=== PATIENT | male | born 1950 | race Caucasian/White ===

== ENCOUNTER 2022-10-29 14:08 | Emergency (ER) | payer OTHER, SELFPAY ==
[2022-10-29 14:10] VITALS: BP 92/58; PULSE 72; RESP 16; TEMP 36; O2SAT 97; BMI 22.3
--- NOTE | 2022-10-29 14:30 | ED.RN ---
ONCE THIS NURSE FINISHED TRIAGING THE PT HE STATED HE IS GOING HOME. EXPLAINED WHY HE WAS HERE. PT STATES HE CALLED THE CAB TO TAKE HIM HOME AND HE IS FINE. HE STATES IF HE SITS TOO LONG HE GETS TIRED BECAUSE HE HAS LOW BP. STATES HE NEEDS TO GO HOME AND TAKE HIS AFTERNOON MEDS. ATTEMPTED TO CONVINCE PT TO LET THE DR LOOK AT HIS HEAD AND PT STATES IT IS FINE, HE DID IT EARLIER AND HE JUST NEEDS A SHOWER. EXPLAINED WE COULD MOST LIKELY LET THE DR SEE HIM AND GIVE HIM MEDS FOR HIS BP AND HE AGAIN REFUSED. EXPLAINED CONCERN BECAUSE HE WAS SLEEPY AND HAD BEEN DRINKING AND HE AGAIN STATES HE IS FINE AND HE IS GOING HOME. MULTIPLE ATTEMPTS TO CONVINCE PT TO STAY AND BE CHECKED OUT OR ATLEAST LET US CALL SOMEONE TO COME GET HIM. PT GOT UP OUT OF THE WC AND THEN AMBULATED FROM THE ER. THIS NURSE LET THE HRO KNOW SO HE COULD KEEP AN EYE OUT FOR HIM.
== END 2022-10-29 14:38 | disposition left against medical advice (07) ==
LOC: ED 14:35
DX: Z53.21 Procedure and treatment not carried out due to patient leaving prior to being seen by health care provider (principal)

== ENCOUNTER 2024-04-20 18:55 | Emergency (ER) | payer OTHER, SELFPAY ==
[2024-04-20 18:56] VITALS: PULSE 69; RESP 18; TEMP 36.8; O2SAT 94; BMI 19.4
--- NOTE | 2024-04-20 19:05 | EDS_ITS ---
HPI <ALVARO Leiva - Last Filed: 04/20/24 20:38> History of Present Illness Chief Complaint: Cold Sx Narrative Narrative: Patient is a 73-year-old male with history of anxiety, depression, enlarged prostate who presents to the emergency department for complaints of cough, congestion over the last week. Pay states has been feeling more short of breath on exertion. Patient states that he has had a lot of sick contact and is here for evaluation. Patient denies any specific fever or chills. Patient states he still smokes about a pack to a pack and a half every day. PFSH <ALVARO Leiva - Last Filed: 04/20/24 20:38> PFSH Home Medications ?Medication ?Instructions ?Recorded ?Last Taken ?Type buspirone 10 mg tablet 10 mg PO TID 07/27/16 Unknow n History escitalopram oxalate 10 mg tablet 10 mg PO DAILY 07/27 Unknown History oxycodone-acetaminophen 5 mg-325 1 tab PO Q4H PRN PRN Pain #12 tabs 07/27/16 Unknown Rx mg tablet sildenafil 100 mg tablet (Viagra) 100 mg PO PRN PRN SE X 07/27/16 Unknown History trazodone 100 mg tablet 100 mg PO QHS 07/27/16 Unkno wn History albuterol sulfate 90 mcg/actuation 2 puff inhalation Q 4H PRN PRN 04/20/24 Unknown Rx aerosol inhaler (Ventolin HFA) Wheezing #8.5 grams prednisone 50 mg tablet 50 mg PO DAILY #5 tabs 04/20 Unknown Rx Allergy/AdvReac Type Severity Reaction Status Date / Time No Known Allergies Allergy Verified 04/20/24 18:55 Social History Smoking Status: Current every day smoker tobacco type: cigarettes ROS <ALVARO Leiva - Last Filed: 04/20/24 20:38> ROS ED ROS Narrative Constitutional: Negative for fever, chills, weight loss, weakness Eyes: Negative for vision loss, vision change, double vision ENT: Negative for any sore throat, ear pain, congestion Cardiovascular: Negative for any chest pain, tightness, palpitations Respiratory: Negative for any sputum production, hemoptysis, dyspnea on exerti on, orthopnea. Positive for cough, dyspnea Gastrointestinal: Negative for any abdominal pain, nausea, vomiting, diarrhea, constipation, blood in stool, blood in vomit : Negative for any urinary frequency, dysuria, retention, blood in urine Muscle skeletal: Negative for any neck pain, back pain Neurological: Negative for any headache, syncope, dizziness Skin: Negative for any rashes, itching, abrasions, lacerations Psychiatric: Negative for any depression, anxiety, stress, suicidal ideation, homicidal ideation Hematologic: Negative for any excessive bruising, easy bleeding EXAM <ALVARO Leiva Last Filed: 04/20/24 20:38> Physical Exam Narrative Exam Narrative: Vital signs reviewed. HEET: Head normocephalic atraumatic, TMs clear bilaterally. Posterior pharynx is clear, moist mucous membranes. Nares clear bilaterally. Neck: Supple with no lymphadenopathy or tenderness. No signs of meningismus. Cardiac: Regular rate and rhythm no murmurs gallops or rubs, equal peripheral pulses bilaterally. Respiratory: Lungs clear to auscultation bilaterally, diminished to the lower lobes. No chest tenderness. Abdomen: Soft, nontender, nondistended. No abdominal bruit or pulsatile masses. No hepatosplenomegaly Extremities: No peripheral edema, no signs of gross trauma or deformity. Active full range of motion of all extremities. Neuro: Cranial nerves II through XII intact, no focal neurological deficits. Skin: Clean dry and intact with no rash, purpura, petechiae, vesicles or pustules. Backs/flank: No CVA tenderness, no midline spinal tenderness, no deformity. Psych: Normal mood and affect. No SI, HI or acute psychosis. Const Vital Signs: 04/20/24 18:56 04/20/24 18:57 04/20/24 19:20 Temperature 98.2 F Temperature Source Oral Pulse Rate 69 57 L Respiratory Rate 18 16 Respiratory Effort Normal Respiratory Pattern Normal Normal Pulse Ox 94 Oxygen Delivery Method Room Air <Dr. Gerardo Dozier DO - Last Filed: 04/20/24 20:45> Physical Exam Const Vital Signs: 04/20/24 18:56 04/20/24 18:57 04/20/24 19:20 Temperature 98.2 F Temperature Source Oral Pulse Rate 69 57 L Respiratory Rate 18 16 Respiratory Effort Normal Respiratory Pattern Normal Normal Pulse Ox 94 Oxygen Delivery Method Room Air MDM <ALVARO Leiva - Last Filed: 04/20/24 20:38> [facility] [place] Radiography Diagnostic Testing: Clinical Impression(s) from Imaging Studies Chest X-Ray 04/20/24 19:43 IMPRESSION: 1. No acute cardiopulmonary process. 2. Increased lucency in the lung bases bilaterally, possibly due to basilar predominant emphysematous disease versus an artifact of overexposure of the radiograph. Reading Location: [facility] Treatment and Re-Evaluation :: Differential diagnosis includes however is not limited to: COVID-19, influenza, RSV, community-acquired pneumonia, COPD exacerbation Patient appears generally well, vital signs are stable, patient is nontoxic- appearing. Presenting to the emergency department for plaints of cough, congestion. On my initial evaluation, I did wake the patient up because he was sleeping, vital signs were stable. Physical examination yields no red flag signs. Patient receive a two-view chest x-ray, COVID-19 influenza RSV swab, as well as breathing treatments. Patient will be reevaluated. All radiologic examinations were read, reviewed by the emergency department attending. From these reads, a plan of care will be put in place. Patient's chest x-ray showed no acute cardiopulmonary process. Patient's COVID- 19 influenza RSV was negative. Patient did feel better after the breathing t reatments. At this time, patient be placed on steroids, albuterol inhaler. Instructed to return for any worsening symptoms. At this time there is no evidence of a bacterial infection, bacterial pneumonia. Patient was able to ambulate around the department with a pulse ox that was normal. Patient was given strict return precaution, stable for discharge. <Dr. Gerardo Dozier, DO - Last Filed: 04/20/24 20:45> [facility] Narrative Medical decision making narrative: I have personally performed a face to face assessment of the patient and have reviewed the NERY Note. I performed a substantive portion of the visit including all aspects of the following. My mahajan findings include: History is [patient presents to the emergency department with complaint of a cough x 1 week. He has a friend that is also been ill with pneumonia recently. He has had some chills especially early on in the illness but no fever. He is a smoker and does not know if he has COPD. Normally does not wear O2. Cough mostly nonproductive. He denies chest pain.] Exam is [HEENT-PERRLA, EOMI. Cranial nerves II through XII grossly intact. TMs clear. Mucous membranes moist. No adenopathy. Cardiovascular-regular rate and rhythm without murmur or ectopy Lungs-few rales in the left base. Occasional faint expiratory wheezes. No conversational dyspnea. No significant tachypnea. Abdomen-normoactive bowel sounds, soft, nontender, no rebound or rigidity, no peritoneal signs. Extremities-intact ?4, normal range of motion, normal pulses, atraumatic] Medical Decison Making [ ] Other additions or changes: [None] Radiography Diagnostic Testing: Clinical Impression(s) from Imaging Studies Chest X-Ray 04/20/24 19:43 IMPRESSION: 1. No acute cardiopulmonary process. 2. Increased lucency in the lung bases bilaterally, possibly due to basilar predominant emphysematous disease versus an artifact of overexposure of the radiograph. [facility] Discharge Plan Triage Chief Complaint: Cold Sx ED Midlevel Provider: Gilberto Danielson ED Provider: Gerardo Dozier Dx/Rx/DC Orders Clinical Impression: URI (upper respiratory infection) Instructions: ED URI, Viral, No Abx (Adult) Prescriptions: New albuterol sulfate [Ventolin HFA] 90 mcg/actuation HFA aerosol inhaler 2 puff inhalation Q4H PRN PRN (Reason: Wheezing) Qty: 8.5 0RF prednisone 50 mg tablet 50 mg PO DAILY Qty: 5 0RF No Action sildenafil [Viagra] 100 MG tablet 100 mg PO PRN PRN (Reason: SEX) trazodone 100 MG tablet 100 mg PO QHS buspirone 10 MG tablet 10 mg PO TID escitalopram oxalate 10 MG tablet 10 mg PO DAILY oxycodone-acetaminophen 1 TABLET tablet 1 tab PO Q4H PRN PRN (Reason: Pain) Qty: 12 0RF [facility] [Primary [facility] Provider] - Activity Restrictions/Additional Instructions: You had a negative COVID-19 influenza RSV swab today. Your chest x-ray which showed chronic changes. Use the prednisone, butyryl inhaler as needed. Continue to try to quit smoking. Print Language: [place] Irish Disposition Disposition: Home, Self Care
[2024-04-20 19:20] VITALS: PULSE 57; RESP 16
[2024-04-20] MEDS: Ipratropium/Albuterol Sulfate 3 ML AMPUL.NEB INHALATION (19:20)
[2024-04-20] MEDS: Albuterol 2.5 MG/3 ML VIAL.NEB. 5 MG INHALATION (19:20)
--- NOTE | 2024-04-20 19:43 | RAD_ITS ---
PROCEDURE: CHEST PA AND LATERAL REASON FOR EXAM: Cough TECHNIQUE: Frontal and lateral views of the chest. COMPARISON: None. FINDINGS: Lucency is present in bilateral lung bases, possibly due to basilar predominant emphysematous disease. No pulmonary consolidation identified. No pleural effusion or pneumothorax. The cardiomediastinal silhouette is unremarkable. No acute osseous or soft tissue abnormality. RAD/Chest PA and Lateral IMPRESSION: 1. No acute cardiopulmonary process. 2. Increased lucency in the lung bases bilaterally, possibly due to basilar pre dominant emphysematous disease versus an artifact of overexposure of the radiograph. Reading [facility]
[2024-04-20 20:34] VITALS: O2SAT 100
[2024-04-20 20:56] VITALS: BP 120/76; PULSE 58; RESP 15; TEMP 36.6; O2SAT 100
== END 2024-04-20 20:56 | disposition home or self-care (01) ==
PROVIDERS: Emergency Provider Emergency Medicine; Visit Provider Emergency Medicine
DX: J06.9 Acute upper respiratory infection, unspecified (principal); F17.210 Nicotine dependence, cigarettes, uncomplicated
CPT/HCPCS: 71046; 87631; 94640; 99283

== ENCOUNTER 2024-08-10 06:17 | Inpatient (IN) | payer OTHER, SELFPAY ==
[2024-08-10] VITALS (19 sets, daily range): BP systolic 106–153; BP diastolic 60–96; PULSE 63–98; RESP 14–26; TEMP 36.3–37; O2SAT 89–100; BMI 18.9; BMI 18.8
--- NOTE | 2024-08-10 06:32 | EKG12_ITS ---
Test Reason : SOB Blood Pressure : */* mmHG Vent. Rate : 83 BPM Atrial Rate : 83 BPM P-R Int : 110 ms QRS Dur : 84 ms QT Int : 370 ms P-R-T Axes : 74 -29 65 degrees QTcB Int : 434 ms Poor data quality, interpretation may be adversely affected Sinus rhythm with short IN Otherwise normal ECG Confirmed by DEEP GONZALEZ, LEONIDAS ([id number]), map editor NEDA GILES ([id number]) on 08/12/2024 6:11:50 AM Referred By: TERRIE Confirmed By: LEONIDAS ADAME MD
[2024-08-10] MEDS: Ipratropium/Albuterol Sulfate 3 ML AMPUL.NEB INHALATION ×3 (06:39→20:15)
[2024-08-10] MEDS: Albuterol 2.5 MG/3 ML VIAL.NEB. INHALATION ×3 (06:41)
--- NOTE | 2024-08-10 06:45 | ED.VIS.DYS ---
HPI History of Present Illness Chief Complaint: Shortness of Breath Informant: patient and spouse/S.O. Narrative Narrative: 74-year-old male presenting with 2 to 3 days of shortness of breath, cough productive of some yellow sputum no blood, no chest pain no fevers or chills. He is 87-88% on room air in triage here on no home oxygen. Denies orthopnea, leg edema, known sick contacts. He does not have any known cardiac or pulmonary problems. [facility] Medical History Depression Home Medications ?Medication ?Instructions ?Recorded ?Last Taken ?Type buspirone 10 mg tablet 10 mg PO TID 07/27/16 Unknown History sildenafil 100 mg tablet (Viagra) 100 mg PO PRN PRN SEX 07/27/16 Unknown History albuterol sulfate 90 mcg/actuation 2 puff inhalation Q4H PRN PRN 04/20/24 Unknown Rx aerosol inhaler (Ventolin HFA) Wheezing #8.5 grams Allergy/AdvReac Type Severity Reaction Status Date / Time No Known Allergies Allergy Verified 08/10/24 06:18 Social History Smoking Status: Current every day smoker tobacco type: cigarettes ROS ROS ED Constitutional Constitutional ED: Denies chills or fever(s) Eyes Eyes: Denies change in vision or diplopia ENT ENT ED: Reports nasal congestion; Denies rhinorrhea or sore throat Cardiovascular Cardiovascular: Denies chest pain, orthopnea, palpitations or paroxysmal nocturnal dyspnea Respiratory/Chest Respiratory/Chest: Reports cough, dyspnea, dyspnea on exertion and sputum; Denies orthopnea or paroxysmal nocturnal dyspnea Gastrointestinal Gastrointestinal: Denies abdominal pain, diarrhea, nausea or vomiting Genitourinary Genitourinary ED: Denies dysuria or hematuria Musculoskeletal Musculoskeletal: Denies back pain or neck pain Integumentary Denies abscess or rash Neurologic Neurologic: Denies headache(s), paresthesias or weakness Psychiatric Psychiatric: Denies suicidal thoughts EXAM Physical Exam Const Vital Signs: 08/10/24 06:17 08/10/24 06:21 08/10/24 06:29 Temperature 98.6 F 98.6 F Temperature Source Oral Oral Pulse Rate 87 85 Respiratory Rate 22 H 22 H Respiratory Effort Short of Breath Labored Respiratory Pattern Blood Pressure 153/73 H 153/73 H Blood Pressure Mean 99 99 Pulse Ox 90 90 Oxygen Delivery Method Room Air Oxygen Flow Rate (L/min) 08/10/24 06:29 08/10/24 06:32 08/10/24 06:41 Temperature Temperature Source Pulse Rate 87 80 Respiratory Rate 22 H 18 Respiratory Effort Respiratory Pattern Normal Blood Pressure 123/79 H Blood Pressure Mean 93 Pulse Ox 90 96 Oxygen Delivery Method Nasal Cannula Nasal Cannula Oxygen Flow Rate (L/min) 2 3 08/10/24 06:42 08/10/24 06:42 Temperature Temperature Source Pulse Rate Respiratory Rate Respiratory Effort Respiratory Pattern Blood Pressure Blood Pressure Mean Pulse Ox 99 94 Oxygen Delivery Method Nasal Cannula Nasal Cannula Oxygen Flow Rate (L/min) 3 3 Positive well nourished and well developed Constitutional Narrative: thin General Appearance ED: well developed and NAD HEENT Reports moist mucous membranes normocephalic and atraumatic Eyes PERRL and EOMs intact bilaterally Neck full ROM, supple, no meningeal signs and no JVD Resp Resp Narrative: tachypneic but no respiratory distress. Diffusely diminished, symmetric. Expiratory wheezes bilaterally. Cardio regular rate, regular rhythm and no murmurs GI non-tender and non-distended Auscultation: normoactive bowel sounds Palpation: soft Back/Spine no CVA tenderness General Back: other FROM Extremity normal to inspection General Extremety ED: Negative for edema, pulses abnormal or tenderness General Extremity: Negative for edema or pulses abnormal Neuro oriented x3, CN's II-XII intact bilaterally and no sensory deficits noted Sensorium / Orientation: awake and alert Motor Exam: strength 5/5 throughout Psych mental status grossly normal Skin no rashes or lesions noted and no wounds MDM MDM MDM Narrative Medical decision making narrative: This patient has the body habitus and the demeanor of a COPD patient and he is a longtime smoker. I think he probably has a viral URI along with a exacerbation of COPD which he does not have an official diagnosis of, but that is how I am going to treat him, with chest x-ray, cardiac rule out workup, and steroids/nebulizer treatments. His CBC is back and he has a significant leukocytosis of 16.3, and with his hypoxemia and respiratory insufficiency, I expect he will need to be admitted. However he will need to be reevaluated and possibly ambulated if his hypoxemia resolves to see if he is better enough to be treated as an outpatient. I did give him Solu-Medrol 125 mg IV. This patient was seen and evaluated just prior to shift change, he has not yet received chest x-ray, that and the rest of his test results and reevaluation checked out to a.m. ED physician. Lab Data Attestation: I reviewed the patient's lab results. Labs: Laboratory Results - last 24 hr 08/10/24 06:35 WBC 16.3 H RBC 4.21 L Hgb 13.8 Hct 42.2 MCV 100.2 H MCH 32.8 H MCHC 32.7 RDW Std Deviation 47.4 H RDW Coeff of Mahad 12.8 Plt Count 492 H MPV 8.9 Immature Gran % (Auto) 0.600 Neut % (Auto) 83.8 H Lymph % (Auto) 5.8 L [place] % (Auto) 9.5 Eos % (Auto) 0.1 Baso % (Auto) 0.2 Absolute Neuts (auto) 13.7 H Absolute Lymphs (auto) 0.95 Nucleated RBC % 0 Rhythm Strip Rhythm Strip: Sinus Rhythm Rate: 85 Ectopy: None EKG Initial EKG: Attestation: I personally reviewed and interpreted this EKG as follows: Interpretation: Sinus Rhythm and No Acute Injury Pattern Comments: Leftward axis. Some peaked precordial T waves. Normal intervals and otherwise normal EKG. Prior EKG tracings: not available for review Prior: No Prior Discharge Plan Triage Chief Complaint: Shortness of Breath ED Provider: Seng Stevens Dx/Rx/DC Orders Clinical Impression: COPD with acute exacerbation, Hypoxemia Prescriptions: No Action sildenafil [Viagra] 100 MG tablet 100 mg PO PRN PRN (Reason: SEX) buspirone 10 MG tablet 10 mg PO TID albuterol sulfate [Ventolin HFA] 90 mcg/actuation HFA aerosol inhaler 2 puff inhalation Q4H PRN PRN (Reason: Wheezing) Qty: 8.5 0RF [facility] [facility] [[facility] Provider] - Print Language: Pashto
[2024-08-10] MEDS: MethylPREDNISolone 125 MG/2 ML Vial IV (06:47)
[2024-08-10 06:51] LABS: Absolute Lymphocyte Count 0.95 X10^3/uL (0.83-4.51); Absolute Neutrophil Count 13.7 X10^3/uL (2.0-7.7); Basophil# 0.03 X10^3/uL; Basophil% 0.2 % (0-1); Eosinophil# 0.02 X10^3/uL; Eosinophils% 0.1 % (0-5); Hematocrit 42.2 % (40-54); Hemoglobin 13.8 g/dL (13.0-16.5); Lymphocyte # 0.95 X10^3/ul (0.83-4.51); Lymphocyte % 5.8 % (19-41); Mean Corp Hgb Conc 32.7 g/dL (32-36); Mean Corpuscular Hgb 32.8 pg (27.0-32.0); Mean Corpuscular Volume 100.2 fL (80-94); Mean Platelet Vol. 8.9 fl (6.2-12.0); Monocyte# 1.56 X10^3/uL; Monocyte% 9.5 % (0-10); NRBC Flagged by Analyzer 0 % (0-5); Neutrophil # 13.68 X10^3/uL (2.7-7.7); Neutrophil % 83.8 % (47-70); POSITIVE DIFFERENTIAL YES; Platelet Count 492 K/mm3 (150-450); RBC Distribution Width CV 12.8 % (11.6-14.6); RBC Distribution Width SD 47.4 fl (35.1-43.9); Red Blood Count 4.21 M/mm3 (4.6-6.2); White Blood Count 16.3 K/mm3 (4.4-11.0)
[2024-08-10 06:52] LABS: Differential Indicated SCAN CRITERIA MET
--- NOTE | 2024-08-10 07:20 | RAD_ITS ---
PROCEDURE: CHEST PA AND LATERAL 08/10/2024 REASON FOR EXAM: COUGH/SOB TECHNIQUE: Frontal and lateral views of the chest. COMPARISON: 04/20/2024 FINDINGS: Hardware: None Heart: The heart size is normal. Mediastinum: The mediastinal contour is unremarkable. Lungs: Patchy opacities in the lung base, more prominent on the right, likely secondary to a combination of atelectasis and pneumonic infiltrates. No pneumothorax. No pleural effusion. Bones: Degenerative changes are identified within the thoracic spine. RAD/Chest PA and Lateral IMPRESSION: See above Reading Location: [facility]
[2024-08-10 07:27] LABS: Anion Gap 10 (5-15); BUN 12 mg/dL (4-19); BUN/Creat Ratio 14.5 RATIO (10-20); Calcium,Total 8.9 mg/dL (7.6-11.0); Carbon Dioxide 29.7 mmol/L (21.0-32.0); Chloride 95 mmol/L (98-108); Creatinine, Serum 0.81 mg/dL (0.70-1.20); EST Glomerular Filtration Rate 93 (>60); Estimated Creatinine Clearance 59.28 ml/min (50-250); Glucose 111 mg/dL (70-99); Lactic Acid 1.8 mmol/L (0.0-2.0); Potassium 4.2 mmol/L (3.3-5.1); Pro- Brain NATRIURETIC PEPTIDE 1153 pg/mL (<=900); Sodium Level 135 mmol/L (133-145); Troponin T High Sensitivity 14 ng/L (<=22)
[2024-08-10 08:06] LABS: Platelet Estimate SLT INC (ADEQ); Red Cell Morphology NORM C+C NORMAL (NORM C&C)
--- NOTE | 2024-08-10 08:41 | PCA ---
PT[facility] HAS [facility] CALLED THEM AT [id number] AND TOLD THEM WE WOULD BE ADMITTING THE PATIENT HERE OVERNIGHT FOR OBS. THEY REQUESTED I FAXED LABS, H&P AND ANYTHING I COULD SEND OVER TO THEM. DONE AND DONE!
[2024-08-10] MEDS: Ceftriaxone 2 GM in 0.9% Normal Saline (50mL MB+) 50 ML IV (08:52)
[2024-08-10] MEDS: Azithromycin 500 MG in 0.9% Normal Saline (250mL Bag) 250 ML 255 MG IV (09:43)
[2024-08-10 10:13] LABS: Troponin T High Sens 2 HR 12 ng/L (<=22)
[2024-08-10] MEDS: Enoxaparin 40 MG/0.4 ML Syringe SC (10:28)
[2024-08-10] MEDS: Ensure Plus High Protein 120 ML LIQUID PO (11:58)
--- NOTE | 2024-08-10 13:38 | HP.PCM.HOS_ITS ---
HPI - General General Date of Admission: 08/10/24 HPI Narrative RONALDO SRINIVASAN, is a 74 M who presents to the hospital with shortness of breath and signs consistent with pneumonia. He has been having 2 to 3 days of increasing shortness of breath as well as a productive cough. He presented to the ER today and was hypoxic to 87 to 88% on room air so he was placed on 4 L of oxygen to maintain his sats. Chest x-ray demonstrated a right lower lobe consolidation with a leukocytosis to 16.3 though he does remain afebrile. In the ER he was given a dose of Rocephin and azithromycin. COVID, influenza, RSV panel is negative. Will obtain a sputum culture. [facility] Medical History (Updated 08/10/24 @ 10:20 by Radhika Wilkes) Cancer Alcohol abuse Anxiety Smoker Depression Home Medications ?Medication ?Instructions ?Recorded ?Last Taken ?Type buspirone 10 mg tablet 10 mg PO TID 07/27/16 Unknow n History sildenafil 100 mg tablet (Viagra) 100 mg PO PRN PRN SE X 07/27/16 Unknown History albuterol sulfate 90 mcg/actuation 2 puff inhalation Q 4H PRN PRN 04/20/24 Unknown Rx aerosol inhaler (Ventolin HFA) Wheezing #8.5 grams Allergy/AdvReac Type Severity Reaction Status Date / Time No Known Allergies Allergy Verified 08/10/24 06:18 Family History (Updated 08/10/24 @ 14:[address] Geoff Pimentel MD) Other Cancer Heart disease Surgical History (Updated 08/10/24 @ 14:[address] Geoff Pimentel MD) Status post hernia repair Social History Smoking Status: Current every day smoker tobacco type: cigarettes ROS Constitutional Constitutional: Denies chills, fatigue, fever(s) or malaise Eyes Eyes: Denies blurry vision ENT HEENT: Denies headache(s) or nasal discharge Cardiovascular Cardiovascular: Denies chest pain, dyspnea on exertion or syncope Respiratory/Chest Respiratory/Chest: Reports productive cough, shortness of breath at rest and shortness of breath with exertion; Denies cough Gastrointestinal Gastrointestinal: Denies constipation, diarrhea, nausea or vomiting Genitourinary Genitourinary: Denies dysuria Neurologic Neurologic: Denies focal weakness, numbness or tremor(s) Psychiatric Psychiatric: Denies anxiety or depression Vital Signs Vital Signs Vital Signs: 08/10/24 06:17 08/10/24 06:21 08/10/24 06:29 Temperature 98.6 F 98.6 F Temperature Source Oral Oral Pulse Rate 87 85 Respiratory Rate 22 H 22 H Respiratory Effort Short of Breath Labored Respiratory Pattern Blood Pressure 153/73 H 153/73 H Blood Pressure Mean 99 99 Blood Pressure Source Blood Pressure Position Blood Pressure Location Pulse Ox 90 90 Oxygen Delivery Method Room Air Oxygen Flow Rate (L/min) Fraction of Inspired Oxygen (FIO2) 08/10/24 06:29 08/10/24 06:32 08/10/24 06:41 Temperature Temperature Source Pulse Rate 87 80 Respiratory Rate 22 H 18 Respiratory Effort Respiratory Pattern Normal Blood Pressure 123/79 H Blood Pressure Mean 93 Blood Pressure Source Blood Pressure Position Blood Pressure Location Pulse Ox 90 96 Oxygen Delivery Method Nasal Cannula Nasal Cannula Oxygen Flow Rate (L/min) 2 3 Fraction of Inspired Oxygen (FIO2) 08/10/24 06:42 08/10/24 06:42 08/10/24 07:21 Temperature 98.4 F Temperature Source Temporal Pulse Rate 92 Respiratory Rate 15 Respiratory Effort Respiratory Pattern Blood Pressure 123/69 H Blood Pressure Mean 87 Blood Pressure Source Blood Pressure Position Blood Pressure Location Pulse Ox 99 94 100 Oxygen Delivery Method Nasal Cannula Nasal Cannula Nasal Cannula Oxygen Flow Rate (L/min) 3 3 3 Fraction of Inspired Oxygen (FIO2) 08/10/24 09:00 08/10/24 09:44 08/10/24 10:12 Temperature 97.9 F 97.9 F 98.2 F Temperature Source Temporal Oral Pulse Rate 98 98 83 Respiratory Rate 19 H 19 H 18 Respiratory Effort Respiratory Pattern Blood Pressure 140/96 H 140/96 H 107/67 Blood Pressure Mean 110 110 80 Blood Pressure Source Blood Pressure Position Blood Pressure Location Pulse Ox 97 97 94 Oxygen Delivery Method Nasal Cannula Nasal Cannula Oxygen Flow Rate (L/min) 3 4 Fraction of Inspired Oxygen (FIO2) 08/10/24 10:35 08/10/24 10:35 Temperature 98.2 F Temperature Source Oral Pulse Rate 83 Respiratory Rate 18 Respiratory Effort Short of Breath Respiratory Pattern Blood Pressure 107/67 Blood Pressure Mean 80 Blood Pressure Source Monitor Blood Pressure Position Supine Blood Pressure Location Right Arm Pulse Ox 94 Oxygen Delivery Method Nasal Cannula Nasal Cannula Oxygen Flow Rate (L/min) 4 Fraction of Inspired Oxygen (FIO2) 4 Weight Weight: 113 lb 3.2 oz Body Mass Index (BMI) 18.8 Physical Exam Narrative General: Alert but drowsy, Oriented x3, Cooperative, No apparent distress, temporal wasting signs of protein calorie malnutrition HEENT: Atraumatic, PERRLA, EOMI, Normocephalic Oral: Moist Mucosa, edentulous how are you current Neck: Supple, No JVD Lungs: Diminished right greater than left, Normal air movement, No rhonchi, scattered wheeze, No rales Cardiovascular: Regular rate, Regular Rhythm, Normal S1, Normal S2, No murmurs Abdomen: Soft, Non Tender, Non-Distended, No Hepato-splenomegaly Extremities: No edema, Capillary Refill Less than 3 Seconds Skin: No rashes, No breakdown Musculoskeletal: No Tenderness to Palpation of Joints or Extremities Neurological: No focal neurological deficits, moves all extremities Psych/Mental Status: Normal Affect, Appropriate Results Lab / Micro Data 08/10/24 06:35 08/10/24 06:35 Labs: Laboratory Results - last 24 hr 08/10/24 06:35: WBC 16.3 H, RBC 4.21 L, Hgb 13.8, Hct 42.2, MCV 100.2 H, MCH 32.8 H, MCHC 32.7, RDW Std Deviation 47.4 H, RDW Coeff of Mahad 12.8, Plt Count 492 H, MPV 8.9, Immature Gran % (Auto) 0.600, Neut % (Auto) 83.8 H, Lymph % (Auto) 5.8 L, [place] % (Auto) 9.5, Eos % (Auto) 0.1, Baso % (Auto) 0.2, Absolute Neuts (auto) 13.7 H, Absolute Lymphs (auto) 0.95, Nucleated RBC % 0, Platelet Estimate SLT INC, RBC Morphology NORM C+C, Sodium 135, Potassium 4.2, Chloride 95 L, Carbon Dioxide 29.7, Anion Gap 10, BUN 12, Creatinine 0.81, Estim Creat Clear Calc 59.28, Est GFR (MDRD) Non-Af 93, BUN/Creatinine Ratio 14.5, Glucose 111 H, Lactic Acid 1.8, Calcium 8.9, Troponin T High Sens 14, NT pro BNP II 1153 H 08/10/24 09:30: Troponin T Hi Sens 2 Hr 12 Micro: Microbiology 08/10/24 06:43 Mucosa - Nose SARS-CoV-2, Influenza & RSV (PCR) - Final Rhythm Strip Rhythm Strip: Sinus Rhythm Rate: 85 Ectopy: None Imaging Radiology Impression Chest X-Ray 08/10/24 07:20 IMPRESSION: See above Reading [facility]: [facility] Assessment & Plan Assessment/Plan (1) Hypoxemia: PLAN: Plan 1. Acute hypoxic respiratory insufficiency secondary to right lower lobe pneumonia/tobacco abuse ? Continue with DuoNebs ? Continue with azithromycin and Rocephin ? Sputum cultures pending ? He was given dose of steroids, will continue with prednisone ? we have no medical records from him so he may have COPD ? He does appear very drowsy on my exam, he says that he has not slept however given the fact that this is a respiratory process we will obtain an ABG to evaluate his pCO2. ? Discussed with administration, can provide a nicotine patch if indicated 2. Chronic alcohol abuse ? Will continue with the CIWA protocol, if he does meet criteria for medications these can be added on 3. Anxiety/depression ? Stable ? Continue with BuSpar 4. Severe protein calorie malnutrition ? Will consult nutrition DVT: Lovemiyax 75 minutes was spent on direct patient care, including documentation as well as chart review and collaboration with colleagues Charges/Coding Visit Charges Inpatient E&M: 64555 Init Hosp L3
[2024-08-10 14:47] LABS: Allen Test Positive; Base Excess 12 mmol/L (-2 to +2); Blood Gas Specimen Type ART; Mode Not entered; O2 Delivery Device NRB; PO2 184 mmHG (75-100); SITE R Brach; SO2 100 % (95-99); Total Carbon Dioxide 39 mmol/L; pCO2 59.5 mmHg (35-45)
[2024-08-10 16:25] LABS: Base Excess 12 mmol/L (-2 to +2); Bicarbonate 36.7 mmol/L (22-26); Blood Gas Specimen Type ART; Mode BiLevel; O2 Delivery Device BiPAP; PO2 90 mmHG (75-100); RR 14; SITE R Brach; SO2 97 % (95-99); Total Carbon Dioxide 39 mmol/L; pCO2 55.7 mmHg (35-45); pH 7.43 (7.35-7.45)
[2024-08-10] MEDS: guaiFENesin 10 ML UDC (200MG/10ML) PO (20:27)
[2024-08-10] MEDS: Acetaminophen 325 MG Tablet 650 MG PO (20:27)
[2024-08-10] MEDS: busPIRone 5 MG Tablet 10 MG PO (20:27)
[2024-08-11] VITALS (15 sets, daily range): BP systolic 93–132; BP diastolic 49–82; PULSE 59–90; RESP 14–24; TEMP 36.4–36.8; O2SAT 90–98
[2024-08-11] MEDS: guaiFENesin 10 ML UDC (200MG/10ML) PO ×2 (05:20→21:04)
[2024-08-11] MEDS: busPIRone 5 MG Tablet 10 MG PO ×3 (05:21→21:04)
[2024-08-11] MEDS: Acetaminophen 325 MG Tablet 650 MG PO ×2 (05:21→21:04)
[2024-08-11 05:52] LABS: Absolute Lymphocyte Count 1.04 X10^3/uL (0.83-4.51); Absolute Neutrophil Count 15.1 X10^3/uL (2.0-7.7); Basophil# 0.04 X10^3/uL; Basophil% 0.2 % (0-1); Hematocrit 39.7 % (40-54); Hemoglobin 12.8 g/dL (13.0-16.5); Lymphocyte # 1.04 X10^3/ul (0.83-4.51); Mean Corp Hgb Conc 32.2 g/dL (32-36); Mean Corpuscular Hgb 32.6 pg (27.0-32.0); Mean Platelet Vol. 9.5 fl (6.2-12.0); Monocyte# 1.08 X10^3/uL; Monocyte% 6.2 % (0-10); NRBC Flagged by Analyzer 0 % (0-5); Neutrophil # 15.14 X10^3/uL (2.7-7.7); Neutrophil % 86.9 % (47-70); Platelet Count 533 K/mm3 (150-450); RBC Distribution Width CV 12.8 % (11.6-14.6); RBC Distribution Width SD 48.2 fl (35.1-43.9); Red Blood Count 3.93 M/mm3 (4.6-6.2); White Blood Count 17.4 K/mm3 (4.4-11.0)
[2024-08-11 06:09] LABS: Anion Gap 8 (5-15); BUN 19 mg/dL (4-19); BUN/Creat Ratio 26.7 RATIO (10-20); Calcium,Total 9.2 mg/dL (7.6-11.0); Carbon Dioxide 30.1 mmol/L (21.0-32.0); Chloride 103 mmol/L (98-108); EST Glomerular Filtration Rate 97 (>60); Estimated Creatinine Clearance 59.73 ml/min (50-250); Glucose 116 mg/dL (70-99); Potassium 4.7 mmol/L (3.3-5.1); Sodium Level 141 mmol/L (133-145)
--- NOTE | 2024-08-11 06:28 | PCM.PN.HOSP ---
Subjective Subjective Slight rise in his white count today secondary to infection as well as his steroids Objective Data Objective Data Vital Signs: Vital Signs Temp Pulse Resp BP Pulse Ox O2 Del Method O2 Flow Rate 98.3 F 65 20 H 106/67 98 Nasal Cannula 3 08/11/24 05:30 08/11/24 05:30 08/11/24 05:30 08/11/24 05:30 08/11/24 06:02 08/11/24 06:02 08/11/24 06:02 FiO2 30 08/11/24 02:35 Oxygen Flow Rate (L/min) 3 Oxygen Delivery Method Nasal Cannula Weight: 113 lb 3.2 oz Body Mass Index (BMI) 18.8 Intake & Output: Intake and Output for Last 24 Hours 08/10/24 08/11/24 08/12/24 03:59 03:59 03:59 Intake Total 1105 / 1105 Output Total 350 / 350 Balance 755 / 755 Lab / Micro Data 08/11/24 04:57 08/11/24 04:57 Labs: Laboratory Results - last 24 hr 08/10/24 06:35: WBC 16.3 H, RBC 4.21 L, Hgb 13.8, Hct 42.2, MCV 100.2 H, MCH 32.8 H, MCHC 32.7, RDW Std Deviation 47.4 H, RDW Coeff of Mahad 12.8, Plt Count 492 H, MPV 8.9, Immature Gran % (Auto) 0.600, Neut % (Auto) 83.8 H, Lymph % (Auto) 5.8 L, [place] % (Auto) 9.5, Eos % (Auto) 0.1, Baso % (Auto) 0.2, Absolute Neuts (auto) 13.7 H, Absolute Lymphs (auto) 0.95, Nucleated RBC % 0, Platelet Estimate SLT INC, RBC Morphology NORM C+C, Sodium 135, Potassium 4.2, Chloride 95 L, Carbon Dioxide 29.7, Anion Gap 10, BUN 12, Creatinine 0.81, Estim Creat Clear Calc 59.28, Est GFR (MDRD) Non-Af 93, BUN/Creatinine Ratio 14.5, Glucose 111 H, Lactic Acid 1.8, Calcium 8.9, Troponin T High Sens 14, NT pro BNP II 1153 H 08/10/24 09:30: Troponin T Hi Sens 2 Hr 12 08/11/24 04:57: WBC 17.4 H, RBC 3.93 L, Hgb 12.8 L, Hct 39.7 L, MCV 101.0 H, MCH 32.6 H, MCHC 32.2, RDW Std Deviation 48.2 H, RDW Coeff of Mahad 12.8, Plt Count 533 H, MPV 9.5, Immature Gran % (Auto) 0.700, Neut % (Auto) 86.9 H, Lymph % (Auto) 6.0 L, [place] % (Auto) 6.2, Eos % (Auto) 0.0, Baso % (Auto) 0.2, Absolute Neuts (auto) 15.1 H, Absolute Lymphs (auto) 1.04, Nucleated RBC % 0, Sodium 141, Potassium 4.7, Chloride 103, Carbon Dioxide 30.1, Anion Gap 8, BUN 19, Creatinine 0.70, Estim Creat Clear Calc 59.73, Est GFR (MDRD) Non-Af 97, BUN/Creatinine Ratio 26.7 H, Glucose 116 H, Calcium 9.2 Micro: Microbiology 08/10/24 06:43 Mucosa - Nose SARS-CoV-2, Influenza & RSV (PCR) - Final ABG Data ABG results: ABG 08/10/24 08/10/24 14:43 16:19 Specimen Type ART ART Sample Site R Brach R Brach pH 7.40 7.43 Bicarbonate Actual 37.0 H 36.7 H Total CO2 39 39 Base Excess 12 H 12 H O2 Saturation 100 H 97 O2 % 15.0 35.0 ABG pCO2 59.5 H 55.7 H ABG pO2 184 H 90 Felix Test Positive Respiration Rate 14 O2 Delivery Device NRB BiPAP Vent Mode Not entered BiLevel Clinical Comments 02/08 Radiography Diagnostic Testing: Radiology Impression Chest X-Ray 08/10/24 07:20 IMPRESSION: See above Reading [facility] Rhythm Strip Rhythm Strip: Sinus Rhythm Rate: 85 Ectopy: None Physical Exam Narrative General: Alert, Oriented x3, Cooperative, No apparent distress, temporal wasting signs of protein calorie malnutrition HEENT: Atraumatic, PERRLA, EOMI, Normocephalic Oral: Moist Mucosa, edentulous how are you current Neck: Supple, No JVD Lungs: Diminished right greater than left, Normal air movement, No rhonchi, scattered wheeze, No rales Cardiovascular: Regular rate, Regular Rhythm, Normal S1, Normal S2, No murmurs Abdomen: Soft, Non Tender, Non-Distended, No Hepato-splenomegaly Extremities: No edema, Capillary Refill Less than 3 Seconds Skin: No rashes, No breakdown Musculoskeletal: No Tenderness to Palpation of Joints or Extremities Neurological: No focal neurological deficits, moves all extremities Psych/Mental Status: Normal Affect, Appropriate Assessment & Plan Assessment/Plan (1) Hypoxemia: PLAN: Plan 1. Acute hypoxic respiratory insufficiency secondary to right lower lobe pneumonia/tobacco abuse ? Continue with DuoNebs ? Continue with azithromycin and Rocephin ? Sputum cultures pending ? He was given dose of IV steroids in the ER, will continue with prednisone ? we have no medical records from him so he may have COPD ? Discussed with administration, can provide a nicotine patch if indicated ? ABG yesterday demonstrated slight elevation in his pCO2, and he was trialed on BiPAP, currently on 3 L nasal cannula. He does feel that the BiPAP helped 2. Chronic alcohol abuse ? Will continue with the CIWA protocol, if he does meet criteria for medications these can be added on ? This morning CIWA score was 2 3. Anxiety/depression ? Stable ? Continue with BuSpar 4. Severe protein calorie malnutrition ? Will consult nutrition DVT: Monica Charges/Coding Visit Charges Inpatient E&M: 93280 Subs Hosp L2
[2024-08-11] MEDS: Ipratropium/Albuterol Sulfate 3 ML AMPUL.NEB INHALATION ×4 (07:03→20:00)
[2024-08-11] MEDS: predniSONE 20 MG Tablet 40 MG PO (07:42)
[2024-08-11] MEDS: Enoxaparin 40 MG/0.4 ML Syringe SC (07:43)
[2024-08-11] MEDS: Ensure Plus High Protein 120 ML LIQUID PO ×3 (07:43→16:54)
[2024-08-11] MEDS: Azithromycin 500 MG in 0.9% Normal Saline (250mL Bag) 250 ML 255 MG IV (09:13)
[2024-08-11] MEDS: 0.9% Saline Lock 10 ML Syringe IV (09:14)
[2024-08-11] MEDS: Ceftriaxone 1 GM/50 ML BAG IV (10:51)
[2024-08-11 11:49] LABS: Vitamin B12 642 pg/mL (180-914)
[2024-08-12] VITALS (12 sets, daily range): BP systolic 103–140; BP diastolic 61–78; PULSE 59–84; RESP 14–23; TEMP 36.4–37.1; O2SAT 92–99
[2024-08-12] MEDS: busPIRone 5 MG Tablet 10 MG PO ×3 (05:53→20:52)
[2024-08-12] MEDS: Acetaminophen 325 MG Tablet 650 MG PO (05:53)
[2024-08-12] MEDS: guaiFENesin 10 ML UDC (200MG/10ML) PO (05:53)
[2024-08-12 06:07] LABS: Absolute Lymphocyte Count 2.54 X10^3/uL (0.83-4.51); Absolute Neutrophil Count 10.8 X10^3/uL (2.0-7.7); Basophil# 0.07 X10^3/uL; Basophil% 0.5 % (0-1); Eosinophil# 0.03 X10^3/uL; Eosinophils% 0.2 % (0-5); Hematocrit 37.9 % (40-54); Hemoglobin 12.2 g/dL (13.0-16.5); Lymphocyte # 2.54 X10^3/ul (0.83-4.51); Mean Corp Hgb Conc 32.2 g/dL (32-36); Mean Corpuscular Volume 99.5 fL (80-94); Mean Platelet Vol. 9.2 fl (6.2-12.0); Monocyte# 1.18 X10^3/uL; Monocyte% 7.9 % (0-10); NRBC Flagged by Analyzer 0 % (0-5); Neutrophil # 10.81 X10^3/uL (2.7-7.7); Neutrophil % 72.3 % (47-70); POSITIVE MORPHOLOGY YES; Platelet Count 538 K/mm3 (150-450); RBC Distribution Width CV 12.8 % (11.6-14.6); RBC Distribution Width SD 46.5 fl (35.1-43.9); Red Blood Count 3.81 M/mm3 (4.6-6.2); White Blood Count 14.9 K/mm3 (4.4-11.0)
[2024-08-12 06:20] LABS: Differential Indicated SCAN CRITERIA MET
[2024-08-12 06:40] LABS: Anion Gap 8 (5-15); BUN 20 mg/dL (4-19); BUN/Creat Ratio 26.1 RATIO (10-20); Carbon Dioxide 29.6 mmol/L (21.0-32.0); Chloride 102 mmol/L (98-108); Creatinine, Serum 0.78 mg/dL (0.70-1.20); EST Glomerular Filtration Rate 94 (>60); Estimated Creatinine Clearance 59.73 ml/min (50-250); Glucose 86 mg/dL (70-99); Potassium 4.8 mmol/L (3.3-5.1); Sodium Level 140 mmol/L (133-145)
[2024-08-12] MEDS: Ipratropium/Albuterol Sulfate 3 ML AMPUL.NEB INHALATION ×4 (06:57→20:25)
[2024-08-12 07:09] LABS: Atypical Lymphocyte RARE %
[2024-08-12] MEDS: Ensure Plus High Protein 120 ML LIQUID PO ×3 (08:18→17:02)
[2024-08-12] MEDS: Enoxaparin 40 MG/0.4 ML Syringe SC (08:18)
[2024-08-12] MEDS: predniSONE 20 MG Tablet 40 MG PO (08:18)
[2024-08-12] MEDS: Ceftriaxone 1 GM/50 ML BAG IV (09:38)
[2024-08-12] MEDS: 0.9% Saline Lock 10 ML Syringe IV (09:38)
[2024-08-12] MEDS: Azithromycin 500 MG in 0.9% Normal Saline (250mL Bag) 250 ML 255 MG IV (10:37)
--- NOTE | 2024-08-12 15:50 | CASEMGMT ---
Addendum entered by Brenda Irvin 08/12/24 16:04: Dtr is David Mark [address] [facility] [place] [address] . SW added to contacts per pt request. No information is to be provided to Annette per pt. GIORGIO Doty Original Note: Social Work- SW met with pt to complete SDOH. Pt reports that he has lived in apartment 1.5-2 years. Pt was late with rent last month and owes this month rent for a total of $920. Pt receives $2058/month from social security and $1000/month from [place] disability. Pt reports no issues with utilities or food. Pt reports no safety concerns. Pt reports that uses the [place] for transportation. Pt has a psychiatrist through [place] for anxiety and depression diagnosis. Pt reports that she feels mood is stable and there are no concerns at this time regarding mental health. Pt reports that he has not been to [place]; his dad several years ago. Pt reports neighbors are nosy and pt does not want neighbor as a contact. Pt provided his daughter's name and contact. SW added to face sheet. Pt does not receive any community services. Pt reports no other needs that rent assistance. SW provided resources on [employer] and [employer]. SW also provided [employer] card and food resources for any future needs. SW remains available to follow. GIORGIO Doty
--- NOTE | 2024-08-12 16:24 | PN_ITS ---
Subjective Subjective Patient seen and examined. He had no active complaints. He was on 2 L of oxygen. He denied any fever or chills, he is still coughing but is not bringing up much sputum. His nurse was by his bedside at time of my review said she tried walking him today but he required increasing amounts of oxygen due to hypoxia. Review of systems otherwise negative. Objective Data Objective Data Vital Signs: Vital Signs Temp Pulse Resp BP Pulse Ox O2 Del Method O2 Flow Rate 98.1 F 69 18 106/61 97 Nasal Cannula 2 08/12/24 15:22 08/12/24 15:22 08/12/24 15:22 08/12/24 15:22 08/12/24 15:22 08/12/24 15:22 08/12/24 15:22 FiO2 30 08/12/24 02:18 Oxygen Flow Rate (L/min) 2 Oxygen Delivery Method Nasal Cannula Weight: 113 lb 3.2 oz Body Mass Index (BMI) 18.8 Intake & Output: Intake and Output for Last 24 Hours 08/10/24 08/11/24 08/12/24 23:59 23:59 23:59 Intake Total 1105 / 1105 1155 / 1155 305 / 305 Output Total 350 / 350 600 / 600 1000 / 1000 Balance 755 / 755 555 / 555 -695 / -695 Lab / Micro Data 08/12/24 05:44 08/12/24 05:44 Labs: Laboratory Results - last 24 hr 08/12/24 05:44: WBC 14.9 H, RBC 3.81 L, Hgb 12.2 L, Hct 37.9 L, MCV 99.5 H, MCH 32.0, MCHC 32.2, RDW Std Deviation 46.5 H, RDW Coeff of Mahad 12.8, Plt Count 538 H, MPV 9.2, Immature Gran % (Auto) 2.100 H, Neut % (Auto) 72.3 H, Lymph % (Auto) 17.0 L, [place] % (Auto) 7.9, Eos % (Auto) 0.2, Baso % (Auto) 0.5, Absolute Neuts (auto) 10.8 H, Absolute Lymphs (auto) 2.54, Nucleated RBC % 0, Atypical Lymphocytes RARE, Sodium 140, Potassium 4.8, Chloride 102, Carbon Dioxide 29.6, Anion Gap 8, BUN 20 H, Creatinine 0.78, Estim Creat Clear Calc 59.73, Est GFR (MDRD) Non-Af 94, BUN/Creatinine Ratio 26.1 H, Glucose 86, Calcium 9.0 Micro: Microbiology 08/10/24 14:15 Sputum, Expectorated/Coughed Gram Stain - Final 08/10/24 06:43 Mucosa - Nose SARS-CoV-2, Influenza & RSV (PCR) - Final Rhythm Strip Rhythm Strip: Sinus Rhythm Rate: 85 Ectopy: None Physical Exam Const alert, oriented x3 and no apparent distress Constitutional Narrative: frail, thin. BMI is 18.8 HEENT normocephalic, head/scalp atraumatic, moist oral mucous membranes and oropharynx normal Eyes PERRL and EOMs intact bilaterally Neck supple and no JVD General: trachea midline Lymph Lymphatic: no lymphedema noted Resp Resp Narrative: Moderately diminished breath sounds bibasilarly. Bilateral wheezes and few crackles. On 2 L of oxygen. Cardio regular rate, regular rhythm, S1 normal heart sound, S2 normal heart sound and no murmurs GI normal to inspection, nondistended, normoactive bowel sounds, soft to palpation, non-tender and non-distended Extremity normal capillary refill, no clubbing, cyanosis or edema and no calf tenderness General Extremity: no tenderness to palpation of joints or extremities Skin General Skin Exam: no breakdown Neuro no focal motor deficits and no sensory deficits noted Motor Exam: general weakness Psych thought process normal and cooperative Appearance: appropriate Assessment & Plan Assessment/Plan (1) COPD with acute exacerbation: (2) Hypoxemia: PLAN: Plan Acute hypoxia in the setting of COPD exacerbation and right lower lobe pneumonia * On IV ceftriaxone and azithromycin. Sputum cultures pending. Breathing treatments bronchodilators. Titrate oxygen to maintain saturation above 90%. #History of chronic alcohol use disorder: On CIWA protocol with Ativan. Monitor CIWA score. I do not take meds for symptomatic relief. #Anxiety and depression: On BuSpar # Severe protein calorie malnutrition: BMI is 18.8. Nutrition consulted. DVT prophylaxis: Lovenox Charges/Coding Visit Charges Inpatient E&M: 61473 Subs Hosp L2
[2024-08-13] VITALS (9 sets, daily range): BP systolic 103–129; BP diastolic 57–82; PULSE 69–85; RESP 18–24; TEMP 36.4–36.8; O2SAT 85–99
[2024-08-13] MEDS: busPIRone 5 MG Tablet 10 MG PO ×3 (04:19→20:19)
[2024-08-13] MEDS: Ipratropium/Albuterol Sulfate 3 ML AMPUL.NEB INHALATION ×4 (07:50→20:58)
[2024-08-13] MEDS: predniSONE 20 MG Tablet 40 MG PO (08:00)
[2024-08-13 09:08] LABS: Hematocrit 43.2 % (40-54); Hemoglobin 13.6 g/dL (13.0-16.5); Mean Corp Hgb Conc 31.5 g/dL (32-36); Mean Corpuscular Hgb 32.1 pg (27.0-32.0); Mean Corpuscular Volume 101.9 fL (80-94); Mean Platelet Vol. 9.1 fl (6.2-12.0); POSITIVE COUNT YES; POSITIVE MORPHOLOGY YES; Platelet Count 605 K/mm3 (150-450); RBC Distribution Width CV 12.9 % (11.6-14.6); RBC Distribution Width SD 48.2 fl (35.1-43.9); Red Blood Count 4.24 M/mm3 (4.6-6.2); White Blood Count 11.8 K/mm3 (4.4-11.0)
[2024-08-13 09:45] LABS: Differential Indicated MANUAL DIFF
[2024-08-13] MEDS: Ceftriaxone 1 GM/50 ML BAG IV (09:46)
[2024-08-13] MEDS: Enoxaparin 40 MG/0.4 ML Syringe SC (09:47)
[2024-08-13 09:51] LABS: Lymphocyte 23 % (19-41); Metamyelocyte 1 % (0-1); Monocyte 9 % (0-10); Myelocyte 1 % (0-0); Neutrophil-Segmented 65 % (47-70); Promyelocyte 1 % (0-0); Total Cells Counted 100 (MANUAL DIFF)
[2024-08-13 09:52] LABS: Anion Gap 9 (5-15); BUN 20 mg/dL (4-19); BUN/Creat Ratio 28.4 RATIO (10-20); Calcium,Total 9.1 mg/dL (7.6-11.0); Carbon Dioxide 32.6 mmol/L (21.0-32.0); Chloride 97 mmol/L (98-108); EST Glomerular Filtration Rate 97 (>60); Estimated Creatinine Clearance 59.73 ml/min (50-250); Glucose 85 mg/dL (70-99); Platelet Estimate MKD DEC (ADEQ); Potassium 4.5 mmol/L (3.3-5.1); Sodium Level 138 mmol/L (133-145)
[2024-08-13 09:53] LABS: Red Cell Morphology N CHROM NORMAL (NORM C&C)
--- NOTE | 2024-08-13 10:11 | CASEMGMT ---
RN?CM?VP OF CUSTOMER EXPERIENCE STRATEGY?CM?to room to meet with patient for initial transition planning/care coordination?assessment.?RN?CM?introduced self and role at [facility].? Pt voices understanding and consents to?assessment?at this time.? Pt resting in bed in no distress at this time.? Pt is A/O at this time and answers all questions appropriately.?? Care providers, pharmacy, and demographics verified/updated at this time. Strata: 2 PCP: Renato POSADAS Specialists: None Preferred Pharmacy: [facility] [place] Insurance: [place], [facility] Prescription Benefit:?yes Living Will/HPOA:? has a HCPOA, stating his daughter, David Mark, is his agent. He states he has a copy of this @ home and asked if he could bring this in. Also recommended David has a copy of this as well. LNOK: Daughter, David. Pt also has a son but states, I don't want to have anything to do with him Living Arrangements: Lives alone in ground-level apt w/one step to enter. Indep w/ADL's and IADL's. Transportation:?Pt does not drive. Pt states the [facility] sends a van to pick him up for appts. His family or friends also assist w/transportation. Sister can take him home @ [place]. DME: ? Denies using any DME and denies needs.?He does not have a pulse ox @ home & states cannot afford one. Recommended he f/u @ [facility] and inquire if they can assist w/getting a pulse ox. No home O2. Discussed possible need of home O2 @ [place]. He states he is okay with getting through the [facility] or through [facility], but only if they cover it @ 100 %, stating he does not have any $ to pay for co-pay. Inquired if pt smokes. He says he does, but he is trying to quit. He was made aware [facility] will not supply O2 until he has stopped smoking for at least 6 months at a minimum. He voices understanding and agreeable to O2 being billed through [facility]. He is aware there may be a co-pay. Aria, MS3 RN BLAKE, made aware of above. HHC/SNF: No hx of either. No needs identified. Pt wishes to return home and states has no concerns with going home at time of discharge. ?CM?to follow for home oxygen needs and any further discharge planning/needs.? Pt voices no further concerns/needs at this time.? Advised pt to ask for?CM?if any further questions/concerns/needs arise.? Voices understanding. PLAN:??Home Follow for possible home O2. Anderson BSN?RN?CM
[2024-08-13] MEDS: Azithromycin 500 MG in 0.9% Normal Saline (250mL Bag) 250 ML 255 MG IV (10:33)
[2024-08-13 10:36] LABS: Scan Smear per Review Criteria MANUAL DIFF
[2024-08-13 12:10] LABS: Absolute Lymphocyte Count 2.71 X10^3/uL (0.83-4.51); Absolute Neutrophil Count 7.7 X10^3/uL (2.0-7.7)
--- NOTE | 2024-08-13 16:33 | PCM.PROGNOTE ---
Subjective Subjective Patient seen and examined with his nurse by his bedside. Patient felt his breathing had improved. He was still mildly tachypneic. Review of systems otherwise negative. He did have walking pulse ox which showed he required 6 L of oxygen so plans to discharge canceled. Objective Data Objective Data Vital Signs: Vital Signs Temp Pulse Resp BP Pulse Ox O2 Del Method O2 Flow Rate 97.6 F L 82 24 H 103/62 94 Nasal Cannula 2 08/13/24 07:43 08/13/24 14:32 08/13/24 14:32 08/13/24 07:43 08/13/24 07:50 08/13/24 07:50 08/13/24 07:50 FiO2 30 08/12/24 20:40 Oxygen Flow Rate (L/min) 2 Oxygen Delivery Method Nasal Cannula Weight: 113 lb 3.2 oz Body Mass Index (BMI) 18.8 Intake & Output: Intake and Output for Last 24 Hours 08/11/24 08/12/24 08/13/24 23:59 23:59 23:59 Intake Total 1155 / 1155 705 / 705 425 / 425 Output Total 600 / 600 1900 / 1900 Balance 555 / 555 -1195 / -1195 425 / 425 Lab / Micro Data 08/13/24 08:47 08/13/24 08:47 Labs: Laboratory Results - last 24 hr 08/13/24 08:47: WBC 11.8 H, RBC 4.24 L, Hgb 13.6, Hct 43.2, MCV 101.9 H, MCH 32.1 H, MCHC 31.5 L, RDW Std Deviation 48.2 H, RDW Coeff of Mahad 12.9, Plt Count 605 H, MPV 9.1, Immature Gran % (Auto) WHITE SUGAR PAN TANK OPERATOR, Neut % (Auto) WHITE SUGAR PAN TANK OPERATOR, Lymph % (Auto) WHITE SUGAR PAN TANK OPERATOR, [place] % (Auto) WHITE SUGAR PAN TANK OPERATOR, Eos % (Auto) WHITE SUGAR PAN TANK OPERATOR, Baso % (Auto) WHITE SUGAR PAN TANK OPERATOR, Absolute Neuts (auto) 7.7, Absolute Lymphs (auto) 2.71, Total Counted 100, Neutrophils % (Manual) 65, Lymphocytes % (Manual) 23, Monocytes % (Manual) 9, Metamyelocytes % 1, Myelocytes % 1 H, Promyelocytes % 1 H, Nucleated RBC % WHITE SUGAR PAN TANK OPERATOR, Diff Path Review May foll, Platelet Estimate MKD DEC, RBC Morphology N CHROM, Sodium 138, Potassium 4.5, Chloride 97 L, Carbon Dioxide 32.6 H, Anion Gap 9, BUN 20 H, Creatinine 0.70, Estim Creat Clear Calc 59.73, Est GFR (MDRD) Non-Af 97, BUN/Creatinine Ratio 28.4 H, Glucose 85, Calcium 9.1 Micro: Microbiology 08/10/24 14:15 Sputum, Expectorated/Coughed Gram Stain - Final 08/10/24 14:15 Sputum, Expectorated/Coughed Respiratory Culture - Final Mixed normal respiratory kwesi. No Streptococcus pneumoniae, beta-hemolytic Streptococcus or Staphylococcus aureus isolated. 08/10/24 06:43 Mucosa - Nose SARS-CoV-2, Influenza & RSV (PCR) - Final Rhythm Strip Rhythm Strip: Sinus Rhythm Rate: 85 Ectopy: None Physical Exam Const alert, oriented x3 and no apparent distress Constitutional Narrative: frail, thin. BMI is 18.8 HEENT normocephalic, head/scalp atraumatic, moist oral mucous membranes and oropharynx normal Eyes PERRL and EOMs intact bilaterally Neck supple and no JVD General: trachea midline Lymph Lymphatic: no lymphedema noted Resp Resp Narrative: Moderately diminished breath sounds bibasilarly. Bilateral wheezes and few crackles. On 2 L of oxygen. Tachypneic Cardio regular rate, regular rhythm, S1 normal heart sound, S2 normal heart sound and no murmurs GI normal to inspection, nondistended, normoactive bowel sounds, soft to palpation, non-tender and non-distended Extremity normal capillary refill, no clubbing, cyanosis or edema and no calf tenderness General Extremity: no tenderness to palpation of joints or extremities Skin General Skin Exam: no breakdown Neuro no focal motor deficits and no sensory deficits noted Motor Exam: general weakness Psych thought process normal and cooperative Appearance: appropriate Assessment & Plan Assessment/Plan (1) COPD with acute exacerbation: (2) Hypoxemia: PLAN: Plan Acute hypoxia in the setting of COPD exacerbation and right lower lobe pneumonia On IV ceftriaxone and azithromycin. Sputum cultures negative. Breathing treatments bronchodilators. Titrate oxygen to maintain saturation above 90%. Had walking pulse ox today and required 6 L of oxygen. #History of chronic alcohol use disorder:\ On CIWA protocol with Ativan. Monitor CIWA score. Adjunctive meds for symptomatic relief #Anxiety and depression: On BuSpar # Severe protein calorie malnutrition: BMI is 18.8. Nutrition consulted. DVT prophylaxis: Lovenox Disposition: Patient requiring 6 L of oxygen today. Anticipate he will be discharged in the next 1 to 2 days. He will likely need oxygen at home but does not currently wear any oxygen. I am hopeful that his oxygen requirements will come down a bit prior to discharge. Charges/Coding Visit Charges Inpatient E&M: 00678 Subs Hosp L2
[2024-08-14 03:29] VITALS: BP 117/70; PULSE 83; RESP 20; TEMP 36.7; O2SAT 98
[2024-08-14 03:55] VITALS: PULSE 77; RESP 20
[2024-08-14] MEDS: Ipratropium/Albuterol Sulfate 3 ML AMPUL.NEB INHALATION (03:55)
[2024-08-14] MEDS: busPIRone 5 MG Tablet 10 MG PO (04:48)
--- NOTE | 2024-08-14 05:57 | NURSING ---
pt got his clothes on and hooped into the elevator per security. Pt has no o2 on at this time. security notified. They saw him get on elevator. Instructed pt needs to come back so we can get the iv out
--- NOTE | 2024-08-14 06:15 | NURSING ---
Security came up and said pt is long gone.
--- NOTE | 2024-08-14 06:20 | PCM.HOSP.N ---
Hospitalist Note I was notified at 6:18 AM the patient's got dressed and got in the elevator and left the hospital until now when he was doing soup. Patient essentially eloped from the hospital.
--- NOTE | 2024-08-14 06:22 | NURSING ---
Dispatch notified pt has his iv in. They will dispense soneone there
--- NOTE | 2024-08-14 06:27 | NURSING ---
Attempted to call pt cell phone but he will not answer
--- NOTE | 2024-08-14 06:39 | NURSING ---
Security called and police said pt removed the iv himself. Pt is home
--- NOTE | 2024-08-16 08:35 | DS.PCM_ITS ---
Providers Date of Admission: 08/10/24 Date of Discharge: 08/14/24 Primary Care Physician: [facility] Reason For Visit: PNEUMONIA WITH HYPOXIA Diagnosis Discharge Diagnosis (1) COPD with acute exacerbation: Status: Chronic Code(s): J44.1 - Chronic obstructive pulmonary disease with (acute) exacerbation (2) Hypoxemia: Status: Acute Code(s): R09.02 - Hypoxemia Plan Acute hypoxia in the setting of COPD exacerbation and right lower lobe pneumonia * On IV ceftriaxone and azithromycin. * Sputum cultures negative. Breathing treatments bronchodilators. * Titrate oxygen to maintain saturation above 90%. * Had walking pulse ox today and required 6 L of oxygen. #History of chronic alcohol use disorder:\ * On CIWA protocol with Ativan. Monitor CIWA score. Adjunctive meds for symptomatic relief * #Anxiety and depression: On BuSpar # Severe protein calorie malnutrition: BMI is 18.8. Nutrition consulted. DVT prophylaxis: Lovenox Disposition: * Patient requiring 6 L of oxygen today. * Anticipate he will be discharged in the next 1 to 2 days. * He will likely need oxygen at home but does not currently wear any oxygen. * I am hopeful that his oxygen requirements will come down a bit prior to discharge. Medications at Discharge Home Medications buspirone 10 mg tablet 10 mg PO TID 07/27/16 sildenafil 100 mg tablet (Viagra) 100 mg PO PRN PRN SEX 07/27/16 albuterol sulfate 90 mcg/actuation aerosol inhaler (Ventolin HFA) 2 puff inhalation Q4H PRN PRN Wheezing #8.5 grams 04/20/24 amoxicillin 875 mg-potassium clavulanate 125 mg tablet 1 tab PO BID 3 days #6 tabs 08/16/24 prednisone 10 mg tablet See Taper PO DAILY 12 days #30 tabs 08/16/24 Hospital Course Procedures 2-D Echocardiogram Summary of Care Provided Minutes Spent on Discharge: 45 Hospital Course: Patient is a 74-year-old male with past medical history as outlined was admitted to the ED on 08/10/2024 with complaint of shortness of breath and a productive cough. He came to the ED and was hypoxic at 87% on room air so he required 4 L of oxygen. Chest x-ray showed a right lower lobe consolidation and WBC was 16.3. Was started on IV Rocephin and azithromycin. COVID, RSV and influenza screen were negative. He was admitted to the body for hypoxia due to community- acquired pneumonia. He also had a history of chronic alcohol use disorder so was placed on Ativan with CIWA protocol. He required up to 6 L of oxygen during. Plan was to discharge patient on 08/13/2024 but he was requiring 6 L of oxygen so plan was to discharge patient the following day if his oxygen requirements improved. Patient however ELOPED on 08/15/2023 after he dressed up, got in the elevator and just left the hospital. Patient was seen and examined on the day of his elopement on 08/14/2024 as he left before this hospitalist started her shift in the morning. Physical Exam Const alert, oriented x3 and no apparent distress Constitutional Narrative: frail, thin. BMI is 18.8 General Appearance: cooperative Orientation / Consciousness: awake Exam Limitations: no limitations HEENT normocephalic, head/scalp atraumatic, hearing grossly normal bilaterally, moist oral mucous membranes and oropharynx normal Eyes EOMs intact bilaterally Neck supple and no JVD General: trachea midline Lymph Lymphatic: no lymphedema noted Resp Resp Narrative: Moderately diminished breath sounds bibasilarly. Bilateral wheezes and few crackles. On 2 L of oxygen. Tachypneic Cardio regular rate, regular rhythm, S1 normal heart sound, S2 normal heart sound and no murmurs GI normal to inspection, nondistended, normoactive bowel sounds and soft to palpation Extremity normal capillary refill, no clubbing, cyanosis or edema and no calf tenderness General Extremity: no tenderness to palpation of joints or extremities Skin no rashes or lesions noted General Skin Exam: no breakdown Neuro no focal motor deficits and no sensory deficits noted Sensorium / Orientation: awake and alert Motor Exam: general weakness Psych thought process normal and cooperative Appearance: appropriate Weight / BMI Weight Weight: 113 lb 3.2 oz Body Mass Index (BMI) 18.8 ABG / Lab / Microbiology Data 08/13/24 08:47 08/13/24 08:47 Microbiology: Microbiology 08/10/24 14:15 Sputum, Expectorated/Coughed Gram Stain - Final 08/10/24 14:15 Sputum, Expectorated/Coughed Respiratory Culture - Final Mixed normal respiratory kwesi. No Streptococcus pneumoniae, beta-hemolytic Streptococcus or Staphylococcus aureus isolated. 08/10/24 06:43 Mucosa - Nose SARS-CoV-2, Influenza & RSV (PCR) - Final D/C Instructions DC O2, CPAP, BIPAP Needs Home O2 Discharge instructions: No DC home with Oxygen: No Meaningful Use Info Meaningful Use Meaningful Use Diagnoses (Choose all that apply): None applicable Ischemic Stroke Statin Dosing Therapy Reference: STATIN DOSE THERAPY REFERENCE: * Patients > 75 years receive moderate or high dose statin therapy. * Patients 75 years or YOUNGER should receive HIGH intensity statin dose unless contraindicated. You will be required to document reason for non-treatment if statin daily dose does not meet guidelines. HIGH DOSE STATIN THERAPY DAILY Atorvastatin > than or = to 40 mg Rosuvastatin > than or = to 20 mg Amlodipine + Atorvastatin > than or = to 2.5/40 mg Ezetimibe + Simvastatin 10/80 mg Simvastatin 80mg Discharge Plan Admission Admit Date/Time: 08/10/24 09:09 Primary Reason for Your Visit: hypoxia due to community acquired pneumonia Attending Provider: Keren Argueta Primary Care Provider: [facility] Consulting Providers: Geoff Pimentel Discharge Orders/Prescriptions Prescriptions: No Action sildenafil [Viagra] 100 MG tablet 100 mg PO PRN PRN (Reason: SEX) buspirone 10 MG tablet 10 mg PO TID albuterol sulfate [Ventolin HFA] 90 mcg/actuation HFA aerosol inhaler 2 puff inhalation Q4H PRN PRN (Reason: Wheezing) Qty: 8.5 0RF prednisone 10 mg tablet See Taper PO DAILY 12 Days Qty: 30 0RF Taper: Prednisone Taper 40 mg WITH BREAKFAST for 3 Days and 0 Hour 30 mg WITH BREAKFAST for 3 Days and 0 Hour 20 mg WITH BREAKFAST for 3 Days and 0 Hour 10 mg WITH BREAKFAST for 3 Days and 0 Hour amoxicillin-pot clavulanate 875-125 mg tablet 1 tab PO BID 3 Days Qty: 6 0RF Referrals / Follow Up: [facility] [Primary Care Provider] - Disposition Disposition (needs filled in before D/C Order can be placed): Against Medical Advice Charges/Coding Visit Charges Inpatient E&M: 12017 Disch Hosp >30min
[2024-08-21 11:30] LABS: Pathologist Review Reviewed
== END 2024-08-14 05:18 | disposition left against medical advice (07) | DRG 193 ==
LOC: ED 09:15 → MS3 09:27
PROVIDERS: Admitting Provider Family Medicine; Emergency Provider Emergency Medicine; Visit Provider Student in an Organized Health Care Education/Training Program
DX: J18.9 Pneumonia, unspecified organism (principal); E43 Unspecified severe protein-calorie malnutrition; J44.1 Chronic obstructive pulmonary disease with (acute) exacerbation; J44.0 Chronic obstructive pulmonary disease with (acute) lower respiratory infection; Z68.1 Body mass index [BMI] 19.9 or less, adult; F10.10 Alcohol abuse, uncomplicated; F32.A Depression, unspecified; F17.210 Nicotine dependence, cigarettes, uncomplicated; J06.9 Acute upper respiratory infection, unspecified; D72.829 Elevated white blood cell count, unspecified; F41.9 Anxiety disorder, unspecified; Z11.52 Encounter for screening for COVID-19; R09.02 Hypoxemia; R06.89 Other abnormalities of breathing; Z79.899 Other long term (current) drug therapy; Z79.891 Long term (current) use of opiate analgesic; Z79.51 Long term (current) use of inhaled steroids; R05.9 Cough, unspecified
CPT/HCPCS: 36415; 36600; 71046; 80048; 82607; 82746; 82803; 83605; 83880; 84484; 85025; 87070; 87205; 87631; 93005; 94002; 94003; 94640; 94668; 94762; 97802; 99285; A4216; J0696

== ENCOUNTER 2024-08-14 15:38 | Inpatient (IN) | payer OTHER, SELFPAY ==
[2024-08-14] VITALS (19 sets, daily range): BP systolic 101–158; BP diastolic 61–129; PULSE 76–98; RESP 14–32; TEMP 36.6–36.8; O2SAT 71–96; BMI 19.6; BMI 19.1
--- NOTE | 2024-08-14 16:33 | EKG12_ITS ---
Test Reason : SOB Blood Pressure : */* mmHG Vent. Rate : 82 BPM Atrial Rate : 82 BPM P-R Int : 136 ms QRS Dur : 78 ms QT Int : 356 ms P-R-T Axes : 86 -18 74 degrees QTcB Int : 415 ms Sinus rhythm with Premature supraventricular complexes Prominent T waves-anterior Abnormal ECG Confirmed by Erik Hollins ([id number]), assignment desk editor NEDA GILES ([id number]) on 08/15/2024 10:15:55 AM Referred By: Confirmed By: Erik Hollins
--- NOTE | 2024-08-14 16:35 | ED.VIS.DYS ---
HPI History of Present Illness Chief Complaint: Shortness of Breath Detail of Chief Complaint: Patient was admitted to the hospital on August 10. Patient eloped this ediyfnn Informant: patient Onset/Context/Timing Onset: Days Context: sudden Timing: Continuous Quality: Positive for Dyspnea on exertion and Wheezing; Negative for Orthopnea or PND Current Severity: Moderate Maximum Severity: Severe Worsened by: Exertion Relieved by: Nothing Associated Symptoms cough Chest Pain: Positive for None Narrative Narrative: Patient is a 74-year-old male. He was mated on August 10 for acute hypoxic respiratory insufficiency secondary to right lower lobe pneumonia. He also has history of chronic alcohol abuse, anxiety depression, severe protein caloric malnutrition. He was placed on Lovenox for DVT prophylaxis. Patient states he left this morning because he had appoint with so security. He presents now because he is short of breath. Patient is breathing much more rapidly than 20 times a minute. He is breathing with pierced lips. He is able to answer 1-3 words at a time. He is not hypoxic. Patient denies fever or chills. Patient believes he has bilateral pneumonia. After reviewing records he had right lower lobe pneumonia. He does have a history of COPD and tobacco abuse. He denies headache, visual, ocular auditory symptoms. He denies chest discomfort. Denies abdominal pain, nausea, vomiting or diarrhea. He denies dysuria, frequency, urgency or hematuria. He denies any skin lesions. PE Risk Factors: Negative for Cancer, OCP + Smoking + > 35, Prior DVT or PE, Recent immobilization, Recent surgery or Recent travel Prior similar symptoms: Yes Recent Illness/Hospitalization: Yes PFSH PFS Medical History Cancer Alcohol abuse Anxiety Smoker Depression Home Medications ?Medication ?Instructions ?Recorded ?Last Taken ?Type buspirone 10 mg tablet 10 mg PO TID 07/27/16 Unknown History sildenafil 100 mg tablet (Viagra) 100 mg PO PRN PRN SEX 07/27/16 Unknown History albuterol sulfate 90 mcg/actuation 2 puff inhalation Q4H PRN PRN 04/20/24 Unknown Rx aerosol inhaler (Ventolin HFA) Wheezing #8.5 grams Allergy/AdvReac Type Severity Reaction Status Date / Time No Known Allergies Allergy Verified 08/14/24 15:43 Family History Other Cancer Heart disease Surgical History Status post hernia repair Social History Smoking Status: Current every day smoker tobacco type: cigarettes ROS ROS ED Constitutional Constitutional ED: Denies chills, fever(s) or sweats Eyes Eyes: Denies blurry vision or change in vision ENT ENT ED: Denies ear pain, rhinorrhea or sore throat Cardiovascular Cardiovascular: Denies chest pain, orthopnea, palpitations or paroxysmal nocturnal dyspnea Respiratory/Chest Respiratory/Chest: Reports cough, dyspnea and dyspnea on exertion; Denies orthopnea or paroxysmal nocturnal dyspnea Gastrointestinal Gastrointestinal: Denies abdominal pain, diarrhea, nausea or vomiting Genitourinary Genitourinary ED: Denies dysuria, hematuria or urinary frequency Musculoskeletal Musculoskeletal: Denies arthralgias or myalgias Integumentary Denies rash Neurologic Neurologic: Denies headache(s) or paresthesias Psychiatric Psychiatric: Reports anxiety Hematologic/Lymphatic Hematologic/Lymphatic: Denies easy bleeding or easy bruising EXAM Physical Exam Const Vital Signs: 08/14/24 15:39 08/14/24 15:39 08/14/24 16:20 Temperature 97.9 F Temperature Source Oral Pulse Rate 95 76 Respiratory Rate 20 H 14 Respiratory Effort Normal Non-Labored Respiratory Depth Normal Respiratory Pattern Normal Blood Pressure 101/74 Blood Pressure Mean 83 Pulse Ox 94 93 Oxygen Delivery Method Room Air Room Air 08/14/24 16:30 08/14/24 16:45 08/14/24 16:45 Temperature Temperature Source Pulse Rate 88 90 76 Respiratory Rate 25 H 26 H 24 H Respiratory Effort Respiratory Depth Respiratory Pattern Tachypnea Blood Pressure 158/86 H Blood Pressure Mean 107 Pulse Ox 95 93 Oxygen Delivery Method 08/14/24 17:00 08/14/24 18:00 Temperature Temperature Source Pulse Rate 82 98 Respiratory Rate 30 H 32 H Respiratory Effort Respiratory Depth Respiratory Pattern Blood Pressure 145/129 H 107/61 Blood Pressure Mean 134 76 Pulse Ox 93 94 Oxygen Delivery Method Room Air Room Air Positive well developed Constitutional Narrative: Patient is thin with a BMI of 19. Patient is not distressed. There is use of accessory muscles and supraclavicular retractions. He is breathing with pierced lips. His responses are 1-3 words in length. General Appearance ED: well developed HEENT Reports dry mucous membranes HEENT Narrative: Head is atraumatic and normocephalic. Ears are normal. Nares are patent Mouth ED: Yes dry mucous membranes Mouth: dry mucous membranes Eyes PERRL and EOMs intact bilaterally General Eye ED: Negative for pale conjunctiva or scleral icterus Neck no lymphadenopathy, supple, no meningeal signs and no JVD Resp No normal respiratory effort and No clear to auscultation bilaterally Auscultation: wheezes expiratory wheezes and scattered wheezes (Bilateral worse lower lobes.) and diminished lung sounds bilateral and diffuse Cardio regular rate, regular rhythm, S1 normal heart sound, S2 normal heart sound and no murmurs Cardio Narrative: Monitor reveals a sinus rhythm with PACs. He also has very peaked T waves. Will obtain EKG. GI non-tender, non-distended and no masses Palpation: soft Back/Spine normal to inspection Extremity normal to inspection Extremity Narrative: There is no clubbing or cyanosis. General Extremety ED: Negative for edema or tenderness General Extremity: Negative for edema Neuro oriented x3 and CN's II-XII intact bilaterally Sensorium / Orientation: alert Psych mental status grossly normal Skin no wounds and skin turgor normal Lesions: no lesions Rashes: no rashes MDM MDM MDM Narrative Medical decision making narrative: Patient with respiratory distress due to noncompliance with medicine. Patient was treated with DuoNeb and albuterol as well as Solu-Medrol. Chest x-ray was obtained to determine if there is any worsening of his pneumonia and appropriate blood work was obtained to assess H&H, white count, renal function, anion gap. Because his respiratory distress and ABG was obtained to determine if he is retaining CO2. He is not hypoxic. ER record and hospitalist records for his present hospitalization were reviewed and documented HPI narrative History & Record Review Additional record(s) reviewed:: Prior inpatient record, Prior ED visit and Prior labs Lab Data Attestation: I reviewed the patient's lab results. Lab results narrative: Basic metabolic panel, liver enzymes are unremarkable. AST and ALT are elevated 102 and 96. He is an alcoholic. Lactate is normal. Labs: Laboratory Results - last 24 hr 08/14/24 08/14/24 16:28 16:39 Sodium 137 Potassium 4.7 Chloride 96 L Carbon Dioxide 29.6 Anion Gap 11 BUN 26 H Creatinine 0.83 Estim Creat Clear Calc 60.01 Est GFR (MDRD) Non-Af 92 BUN/Creatinine Ratio 31.5 H Glucose 85 Lactic Acid 1.5 Calcium 9.1 Total Bilirubin < 0.15 AST 102 H ALT 96 H Alkaline Phosphatase 113 Total Protein 6.1 Albumin 3.2 L Globulin 2.9 Albumin/Globulin Ratio 1.1 ABG Data Attestation: I personally reviewed and interpreted this ABG as follows: Interpretation: ABG reveals an alkalosis. Patient is not hypoxic in the ABG correlates with the pulse ox. Patient has a metabolic alkalosis. ABG results: ABG 08/14/24 16:55 Specimen Type ART Sample Site L Radial pH 7.50 H Bicarbonate Actual 35.4 H Total CO2 37 Base Excess 12 H O2 Saturation 92 L ABG pCO2 45.8 H ABG pO2 59 L Felix Test Positive O2 Delivery Device Not entered Vent Mode Not entered Radiography Chest X-Ray - ED: 2 View and Read by ED Physician (There is hyperaeration. He has what appears to be a peripheral right lower lobe infiltrate. Comparison August 10. Difficult to know if there is any improvement since today's film is overpenetrated in comparison. Cardiac silhouette size normal. Hilum is unremarkable. Osseous trucks revealed no acu) Diagnostic Testing: Clinical Impression(s) from Imaging Studies Chest X-Ray 08/14/24 17:20 IMPRESSION: As above. Reading Location: [place] [address] EKG Initial EKG: Attestation: I personally reviewed and interpreted this EKG as follows: Interpretation: Sinus Rhythm (Rate is 82. There are premature atrial beats noted. NC interval is 136 ms. QS duration 78 ms. QT duration is 356 ms. [place] is normal. There is no ischemic changes noted.) Management Discussion w/another healthcare provider: Hospitalist (Case discussed with Dr. Alexander Rose. Full admit MedSurg) Treatment and Re-Evaluation :: Patient was reassessed at 1806. He is no longer in respiratory distress. He is moving air more freely. There is no wheezing. He is no longer pierced lip breathing and there is no use of accessory muscles or retractions. He is not tachypneic. Will have nurse ambulate and measure pulse ox. Suspect patient be able to go home. Comments:: When patient ambulated pulse ox went from 92% to 88%. He is not a candidate for outpatient therapy. Hospitalist was paged for readmission. Discharge Plan Dx/Rx/DC Orders Clinical Impression: Right lower lobe pneumonia, Hypoxemia, Acute exacerbation of chronic obstructive pulmonary disease, Acute bronchospasm, Acute respiratory distress Disposition Disposition: Acute Care Hospital [facility]
[2024-08-14] MEDS: Ipratropium/Albuterol Sulfate 3 ML AMPUL.NEB INHALATION ×2 (16:44→22:29)
[2024-08-14] MEDS: Albuterol 2.5 MG/3 ML VIAL.NEB. INHALATION ×3 (16:44→16:45)
[2024-08-14 16:58] LABS: Allen Test Positive; Base Excess 12 mmol/L (-2 to +2); Bicarbonate 35.4 mmol/L (22-26); Blood Gas Specimen Type ART; Mode Not entered; O2 Delivery Device Not entered; PO2 59 mmHG (75-100); SITE L Radial; SO2 92 % (95-99); Total Carbon Dioxide 37 mmol/L; pCO2 45.8 mmHg (35-45)
[2024-08-14 17:08] LABS: Hematocrit 41.2 % (40-54); Hemoglobin 13.3 g/dL (13.0-16.5); Mean Corp Hgb Conc 32.3 g/dL (32-36); Mean Corpuscular Volume 99.3 fL (80-94); POSITIVE COUNT YES; POSITIVE MORPHOLOGY YES; Platelet Count 576 K/mm3 (150-450); RBC Distribution Width CV 12.7 % (11.6-14.6); RBC Distribution Width SD 46.5 fl (35.1-43.9); Red Blood Count 4.15 M/mm3 (4.6-6.2); White Blood Count 13.3 K/mm3 (4.4-11.0)
[2024-08-14 17:13] LABS: Lactic Acid 1.5 mmol/L (0.0-2.0)
[2024-08-14 17:15] LABS: ALB/GLOB Ratio 1.1 RATIO (0.9-2.4); AST(SGOT) 102 U/L (<=37); Alanine Aminotransfer ALT/SGPT 96 U/L (<=46); Albumin, Serum 3.2 g/dL (3.4-4.8); Alkaline Phosphatase 113 U/L (40-129); Anion Gap 11 (5-15); BUN 26 mg/dL (4-19); BUN/Creat Ratio 31.5 RATIO (10-20); Calcium,Total 9.1 mg/dL (7.6-11.0); Carbon Dioxide 29.6 mmol/L (21.0-32.0); Chloride 96 mmol/L (98-108); Creatinine, Serum 0.83 mg/dL (0.70-1.20); EST Glomerular Filtration Rate 92 (>60); Estimated Creatinine Clearance 60.01 ml/min (50-250); Globulin 2.9 g/dL (2.2-4.2); Glucose 85 mg/dL (70-99); Potassium 4.7 mmol/L (3.3-5.1); Protein, Total 6.1 g/dL (5.9-8.4); Sodium Level 137 mmol/L (133-145); Total Bilirubin < 0.15 mg/dL (0.00-1.30)
--- NOTE | 2024-08-14 17:20 | RAD_ITS ---
PROCEDURE: CHEST PA AND LATERAL 08/14/2024 REASON FOR EXAM: RESPIRATORY DISTRESS, HISTORY OF BILATERAL PNEUMON TECHNIQUE: Frontal and lateral views of the chest. COMPARISON: 08/10/2024. FINDINGS: Increased lucency of the lung bases with right basilar consolidative opacity which may represent scarring or pneumonia. No pleural effusion. The heart is normal in size. No acute osseous abnormalities. RAD/Chest PA and Lateral IMPRESSION: As above. Reading Location: [place] [address]
[2024-08-14] MEDS: MethylPREDNISolone 125 MG/2 ML Vial 60 MG IV (17:34)
--- NOTE | 2024-08-14 19:00 | HP.PCM.HOS_ITS ---
HPI - General General Chief Complaint: sob with exertion HPI Narrative RONALDO SRINIVASAN, is a 74 M with pmhx of smoking, BPH, possible EtOH abuse, anxiety/depression who presented to the ER today with SOB with exertion. The patient was just admitted to this hospital for RLL pna and suspected COPD and eloped this AM. He states he left the hospital because he had an appointment with social security that he had for a very long time and just could not miss it. He came back to the hospital because he is very SOB with exertion. At this time he is not SOB at rest. He does not normally use home O2. He currently is resting comfortably off O2 with SpO2 96%. He did drop his sats to 88% when ambulated in the ER. He currently has a productive cough with yellow mucus, no hemoptysis. He has no fever/chills/body ache, and no n/v/d. He smokes 1 ppw cigarettes and drinks a couple times per week, he denies drinking since discharge. [facility] Medical History Cancer Alcohol abuse Anxiety Smoker Depression Home Medications ?Medication ?Instructions ?Recorded ?Last Taken ?Type buspirone 10 mg tablet 10 mg PO TID 07/27/16 Unknow n History sildenafil 100 mg tablet (Viagra) 100 mg PO PRN PRN SE X 07/27/16 Unknown History albuterol sulfate 90 mcg/actuation 2 puff inhalation Q 4H PRN PRN 04/20/24 Unknown Rx aerosol inhaler (Ventolin HFA) Wheezing #8.5 grams Allergy/AdvReac Type Severity Reaction Status Date / Time No Known Allergies Allergy Verified 08/14/24 15:43 Family History Other Cancer Heart disease Surgical History Status post hernia repair Social History Smoking Status: Current every day smoker tobacco type: cigarettes ROS Constitutional Constitutional: Denies chills, fatigue or fever(s) ENT HEENT: Denies nasal congestion, nasal discharge or sore throat Cardiovascular Cardiovascular: Denies chest pain, lightheadedness or palpitations Respiratory/Chest Respiratory/Chest: Reports cough, excessive phlegm production and shortness of breath with exertion; Denies shortness of breath at rest Gastrointestinal Gastrointestinal: Denies abdominal pain, diarrhea, nausea or vomiting Genitourinary Genitourinary: Denies burning urination or difficulty urinating Musculoskeletal Musculoskeletal: Denies arthralgias or back pain Neurologic Neurologic: Denies abnormal gait Psychiatric Psychiatric: Reports anxiety Endocrine Endocrinology: Denies change in body appearance Hematologic/Lymphatic Hematologic/Lymphatic: Denies anemia Allergic/Immunologic Allergic/Immunologic: Denies rhinitis or asthma Vital Signs Vital Signs Vital Signs: 08/14/24 15:39 08/14/24 15:39 08/14/24 16:20 Temperature 97.9 F Temperature Source Oral Pulse Rate 95 76 Respiratory Rate 28 H 14 Respiratory Effort Normal Non-Labored Respiratory Depth Normal Respiratory Pattern Normal Blood Pressure 101/74 Blood Pressure Mean 83 Pulse Ox 94 93 Oxygen Delivery Method Room Air Room Air 08/14/24 16:30 08/14/24 16:45 08/14/24 16:45 Temperature Temperature Source Pulse Rate 88 90 76 Respiratory Rate 25 H 26 H 24 H Respiratory Effort Respiratory Depth Respiratory Pattern Tachypnea Blood Pressure 158/86 H Blood Pressure Mean 107 Pulse Ox 95 93 Oxygen Delivery Method 08/14/24 17:00 08/14/24 18:00 Temperature Temperature Source Pulse Rate 82 98 Respiratory Rate 30 H 32 H Respiratory Effort Respiratory Depth Respiratory Pattern Blood Pressure 145/129 H 107/61 Blood Pressure Mean 134 76 Pulse Ox 93 94 Oxygen Delivery Method Room Air Room Air Weight Weight: 53.524 kg Body Mass Index (BMI) 19.6 Physical Exam Const alert, oriented x3 and no apparent distress General Appearance: cooperative HEENT normocephalic and head/scalp atraumatic Eyes PERRL and EOMs intact bilaterally Neck no lymphadenopathy Resp normal respiratory effort Resp Narrative: severely diminished throughout Auscultation: rhonchi; Negative for crackles Cardio regular rate, regular rhythm and no murmurs GI normal to inspection, nondistended, normoactive bowel sounds, soft to palpation and non-tender Extremity normal to inspection Neuro oriented x3 Psych affect normal Results Lab / Micro Data 08/14/24 16:28 08/14/24 16:28 Labs: Laboratory Results - last 24 hr 08/14/24 16:28: Sodium 137, Potassium 4.7, Chloride 96 L, Carbon Dioxide 29.6, Anion Gap 11, BUN 26 H, Creatinine 0.83, Estim Creat Clear Calc 60.01, Est GFR (MDRD) Non-Af 92, BUN/Creatinine Ratio 31.5 H, Glucose 85, Calcium 9.1, Total Bilirubin < 0.15, AST 102 H, ALT 96 H, Alkaline Phosphatase 113, Total Protein 6.1, Albumin 3.2 L, Globulin 2.9, Albumin/Globulin Ratio 1.1 08/14/24 16:39: Lactic Acid 1.5 ABG Data ABG results: ABG 08/14/24 16:55 Specimen Type ART Sample Site L Radial pH 7.50 H Bicarbonate Actual 35.4 H Total CO2 37 Base Excess 12 H O2 Saturation 92 L ABG pCO2 45.8 H ABG pO2 59 L Felix Test Positive O2 Delivery Device Not entered Vent Mode Not entered Imaging Radiology Impression Chest X-Ray 08/14/24 17:20 IMPRESSION: As above. Reading Location: [place] [address] Assessment & Plan Assessment/Plan (1) Right lower lobe pneumonia: PLAN: 1. RLL CAP - Pt left AMA this AM in order to get a meeting with social security. He came back to the ER as he was still significantly SOB with exertion and in the ER dropped to 88% when ambulating tho currently stable off O2 96%. A shows pH 7.5, O2 92, CO2 37. Sputum culture is negative, Flu/Covid/RSV is negative. CXR shows RLL infiltrate vs scarring. Pt admitted to [facility]. O2 As needed, walking pulse ox in the AM. Resume Rocephin and Azithromycin. Duonebs scheduled. Encourage incentive spirometry. no documented hx of COPD but suspicious given his smoking hx. consider steroid taper. 2. Hx Smoking - pt desires patch. 1ppw smoker 3. Hx EtOH abuse - was previously on CIWA protocol with ativan prn will resume. pt declines drinking daily at home and notes he did not drink while he was away AMA. 4. Hx BPH - does not appear to be on home meds 5. Hx Anx/Depression - on buspar DVT ppx: lovenox DC planning: may require home o2, however likely can be weaned. This patient was seen by Ramon Martines PA-C under the supervision of Doctor Rose.
--- NOTE | 2024-08-14 20:06 | CASEMGMT ---
Social Work Patients CM assessment was completed yesterday. Patient eloped from the hospital due to having an appointment at the Social Security office that he stated he could not miss. Patient now states he thinks that was a bad idea and is ready to complete treatment. No further needs identified at this time. Maryan Santana, WOOD MILLING MACHINE OPERATOR, REDEVELOPMENT MANAGER
[2024-08-14] MEDS: Ceftriaxone 1 GM/50 ML BAG IV (21:15)
[2024-08-14] MEDS: Azithromycin 500 MG in 0.9% Normal Saline (250mL Bag) 250 ML 255 MG IV (21:15)
[2024-08-14] MEDS: 0.9% Saline Lock 10 ML Syringe IV (21:20)
[2024-08-14] MEDS: busPIRone 5 MG Tablet 10 MG PO (21:21)
[2024-08-14 22:20] LABS: Differential Indicated MANUAL DIFF
[2024-08-14 22:26] LABS: Metamyelocyte 5 % (0-1); Neutrophil-Band 3 % (0-5); Neutrophil-Segmented 46 % (47-70); Total Cells Counted 100 (MANUAL DIFF)
[2024-08-14 22:27] LABS: Lymphocyte 30 % (19-41); Monocyte 11 % (0-10); Myelocyte 5 % (0-0)
[2024-08-14 22:29] LABS: Absolute Lymphocyte Count 3.98 X10^3/uL (0.83-4.51); Absolute Neutrophil Count 6.5 X10^3/uL (2.0-7.7)
[2024-08-14 22:30] LABS: Platelet Estimate MOD INC (ADEQ)
[2024-08-15] VITALS (11 sets, daily range): BP systolic 91–112; BP diastolic 51–69; PULSE 69–98; RESP 16–22; TEMP 36.6–37.1; O2SAT 92–98
[2024-08-15] MEDS: Ipratropium/Albuterol Sulfate 3 ML AMPUL.NEB INHALATION ×5 (02:09→19:30)
[2024-08-15] MEDS: busPIRone 5 MG Tablet 10 MG PO ×3 (06:01→22:09)
[2024-08-15] MEDS: 0.9% Saline Lock 10 ML Syringe IV ×3 (06:02→22:08)
[2024-08-15 06:16] LABS: Hematocrit 40.9 % (40-54); Hemoglobin 13.3 g/dL (13.0-16.5); Mean Corp Hgb Conc 32.5 g/dL (32-36); Mean Corpuscular Hgb 32.4 pg (27.0-32.0); Mean Corpuscular Volume 99.5 fL (80-94); Mean Platelet Vol. 9.1 fl (6.2-12.0); Platelet Count 607 K/mm3 (150-450); RBC Distribution Width CV 12.9 % (11.6-14.6); RBC Distribution Width SD 47.3 fl (35.1-43.9); Red Blood Count 4.11 M/mm3 (4.6-6.2); White Blood Count 15.2 K/mm3 (4.4-11.0)
[2024-08-15 06:49] LABS: Anion Gap 13 (5-15); BUN 26 mg/dL (4-19); BUN/Creat Ratio 33.5 RATIO (10-20); Calcium,Total 9.1 mg/dL (7.6-11.0); Carbon Dioxide 26.4 mmol/L (21.0-32.0); Chloride 99 mmol/L (98-108); Creatinine, Serum 0.77 mg/dL (0.70-1.20); EST Glomerular Filtration Rate 94 (>60); Estimated Creatinine Clearance 60.49 ml/min (50-250); Glucose 178 mg/dL (70-99); Sodium Level 138 mmol/L (133-145)
[2024-08-15] MEDS: Enoxaparin 40 MG/0.4 ML Syringe SC (09:55)
--- NOTE | 2024-08-15 11:12 | PCM.PN.HOSP ---
Reason for Visit Reason for Visit: Diagnoses Pneumonia, unspecified organism (08/14/24) Subjective Subjective Saw patient at bedside this morning. Sitting back comfortably in bedside chair, conversing normally, in no acute distress. He was breathing comfortably on room air at rest. Did have mild wheezing noted in upper airways bilaterally but otherwise fairly good air movement throughout. Noted that he was feeling better today compared to yesterday. No other new concerns this morning. Objective Data Objective Data Vital Signs: Vital Signs Temp Pulse Resp BP Pulse Ox O2 Del Method O2 Flow Rate 97.9 F 83 18 91/51 L 97 Nasal Cannula 2 08/15/24 08:00 08/15/24 08:00 08/15/24 08:00 08/15/24 08:00 08/15/24 08:00 08/15/24 08:02 08/15/24 08:02 Oxygen Flow Rate (L/min) 2 Oxygen Delivery Method Nasal Cannula Weight: 52 kg Body Mass Index (BMI) 19.1 Intake & Output: Intake and Output for Last 24 Hours 08/13/24 08/14/24 08/15/24 23:59 23:59 23:59 Intake Total 305 / 305 Balance 305 / 305 Lab / Micro Data 08/15/24 05:17 08/15/24 05:17 Labs: Laboratory Results - last 24 hr 08/14/24 16:28: WBC 13.3 H, RBC 4.15 L, Hgb 13.3, Hct 41.2, MCV 99.3 H, MCH 32.0, MCHC 32.3, RDW Std Deviation 46.5 H, RDW Coeff of Mahad 12.7, Plt Count 576 H, MPV 9.0, Neut % (Auto) Not Reportable, Absolute Neuts (auto) 6.5, Absolute Lymphs (auto) 3.98, Total Counted 100, Neutrophils % (Manual) 46 L, Band Neutrophils % 3, Lymphocytes % (Manual) 30, Monocytes % (Manual) 11 H, Metamyelocytes % 5 H, Myelocytes % 5 H, Platelet Estimate MOD INC, Sodium 137, Potassium 4.7, Chloride 96 L, Carbon Dioxide 29.6, Anion Gap 11, BUN 26 H, Creatinine 0.83, Estim Creat Clear Calc 60.01, Est GFR (MDRD) Non-Af 92, BUN/Creatinine Ratio 31.5 H, Glucose 85, Calcium 9.1, Total Bilirubin < 0.15, AST 102 H, ALT 96 H, Alkaline Phosphatase 113, Total Protein 6.1, Albumin 3.2 L, Globulin 2.9, Albumin/Globulin Ratio 1.1 08/14/24 16:39: Lactic Acid 1.5 08/15/24 05:17: WBC 15.2 H, RBC 4.11 L, Hgb 13.3, Hct 40.9, MCV 99.5 H, MCH 32.4 H, MCHC 32.5, RDW Std Deviation 47.3 H, RDW Coeff of Mahad 12.9, Plt Count 607 H, MPV 9.1, Sodium 138, Potassium 5.0, Chloride 99, Carbon Dioxide 26.4, Anion Gap 13, BUN 26 H, Creatinine 0.77, Estim Creat Clear Calc 60.49, Est GFR (MDRD) Non-Af 94, BUN/Creatinine Ratio 33.5 H, Glucose 178 H, Calcium 9.1 ABG Data ABG results: ABG 08/14/24 16:55 Specimen Type ART Sample Site L Radial pH 7.50 H Bicarbonate Actual 35.4 H Total CO2 37 Base Excess 12 H O2 Saturation 92 L ABG pCO2 45.8 H ABG pO2 59 L Felix Test Positive O2 Delivery Device Not entered Vent Mode Not entered Radiography Diagnostic Testing: Radiology Impression Chest X-Ray 08/14/24 17:20 IMPRESSION: As above. Reading Location: [place] [address] Physical Exam Const alert, oriented x3 and no apparent distress Constitutional Narrative: Elderly male, thin with pulmonary cachexia, good energy level, sitting back comfortably in bedside chair, conversing normally, in no acute distress. General Appearance: cooperative and comfortable HEENT normocephalic, head/scalp atraumatic, hearing grossly normal bilaterally, nasal mucous membranes and turbinates normal and moist oral mucous membranes Eyes PERRL, EOMs intact bilaterally and conjunctivae normal Neck full ROM Chest inspection of chest normal Resp normal respiratory effort and no use of accessory muscles Resp Narrative: Breathing comfortably on room air at rest. Mild wheezing noted in upper airways bilaterally but otherwise with good air movement throughout and no crackles noted. Improving. Cardio regular rate, regular rhythm, no murmurs and peripheral pulses 2+ throughout GI normal to inspection, nondistended, normoactive bowel sounds, soft to palpation, non-tender and non-distended Back/Spine normal ROM Extremity normal to inspection, full ROM and no pedal edema Skin no rashes or lesions noted Psych mental status grossly normal Assessment & Plan Assessment/Plan (1) Hypoxemia: (2) COPD with acute exacerbation: PLAN: Plan Patient is a 74-year-old male who presented to [facility] ED on 08/14/24 for worsening shortness of breath. 1. Acute hypoxia in setting of COPD exacerbation with concern for right lower lobe pneumonia ? Initially presented to ED on 08/10 with worsening shortness of breath and symptoms consistent with pneumonia. Treated for COPD exacerbation with IV antibiotics, IV steroids and scheduled DuoNebs with some improvement. Patient left AMA on morning of 08/14 as he needed to attend some sort of meeting. He then returned to the ED on evening of 08/14. Did have continued symptoms of shortness of breath and wheezing on return. Chest x-ray showed increased lucency in lung bases with right basilar consolidative opacity concerning for pneumonia. Infectious workup negative. Will continue to treat with IV antibiotics, IV steroids and scheduled DuoNebs. Patient weaned off supplemental oxygen at rest and requiring only 2 L with exertion on 08/15. Will repeat oxygen testing tomorrow in preparation for likely discharge home. 2. Chronic alcohol use disorder ? Continue CIWA protocol without medications for now. 3. Anxiety/depression ? Continue home BuSpar. 4. Moderate protein calorie malnutrition ? Nutrition following. Does meet criteria for chronic moderate protein calorie malnutrition. Continue Ensure plus high-protein with meals while inpatient. 5. Tobacco abuse ? Smokes 1 pack/week. Nicotine patch available if requested. Discussed cessation on discharge. DVT prophylaxis: Lovenox CODE STATUS: DNR CCA, DNI Expected disposition: Home, 1 to 2 days Total clinical time spent by myself addressing the patient's medical issues, reviewing all the data, and collaborating with patient's care team: 35 minutes. Charges/Coding Visit Charges Inpatient E&M: 93063 Subs Hosp L2
--- NOTE | 2024-08-15 13:02 | CASEMGMT ---
REBEKA LOZANO Readmission Note Previous Admission: 08/10/24-08/14/24 Diagnosis: PNA with hypoxia DC Disposition: Pt eloped Current Admission: 08/14/24 Current Diagnosis: COPD exac Pt with recent admission and pt eloped. Pt had required 6 liters of oxygen that same day and dc was held due to this. REBEKA LOZANO into pt room, pt states that he had an appt at the social security office and that is why he left. Pt is sitting up in chair eating lunch with oxygen on. Pt aware [facility] due [facility]. Pt is aware of the importance and safety reasons of not smoking with oxygen. Pt states the [facility]. Pt does not use AD. Pt reports being indep in ADL/IADLs and manages his own meds. Pt provided a local DME list verbally of options should pt need oxygen, pt chose [employer]. Pt denies any further homegoing needs. [facility]. Pt reports he does not. DC Plan: Home, follow for oxygen.
[2024-08-15] MEDS: Azithromycin 500 MG in 0.9% Normal Saline (250mL Bag) 250 ML 255 MG IV (22:07)
[2024-08-16 04:15] VITALS: BP 110/68; PULSE 82; RESP 16; TEMP 37.1; O2SAT 96
[2024-08-16 04:42] VITALS: O2SAT 93; O2SAT 96
[2024-08-16] MEDS: busPIRone 5 MG Tablet 10 MG PO (05:45)
[2024-08-16] MEDS: 0.9% Saline Lock 10 ML Syringe IV (05:45)
[2024-08-16 05:50] VITALS: O2SAT 92; O2SAT 96
[2024-08-16 06:45] LABS: Hemoglobin 12.4 g/dL (13.0-16.5); Mean Corp Hgb Conc 31.8 g/dL (32-36); Mean Corpuscular Hgb 32.1 pg (27.0-32.0); Mean Platelet Vol. 9.5 fl (6.2-12.0); Platelet Count 559 K/mm3 (150-450); RBC Distribution Width SD 48.5 fl (35.1-43.9); Red Blood Count 3.86 M/mm3 (4.6-6.2); White Blood Count 29.4 K/mm3 (4.4-11.0)
[2024-08-16] MEDS: Ipratropium/Albuterol Sulfate 3 ML AMPUL.NEB INHALATION (07:06)
[2024-08-16 07:20] LABS: Anion Gap 11 (5-15); BUN 30 mg/dL (4-19); BUN/Creat Ratio 43.4 RATIO (10-20); Calcium,Total 8.9 mg/dL (7.6-11.0); Carbon Dioxide 26.5 mmol/L (21.0-32.0); Chloride 102 mmol/L (98-108); Creatinine, Serum 0.68 mg/dL (0.70-1.20); EST Glomerular Filtration Rate 98 (>60); Estimated Creatinine Clearance 60.49 ml/min (50-250); Glucose 126 mg/dL (70-99); Potassium 4.7 mmol/L (3.3-5.1); Sodium Level 140 mmol/L (133-145)
[2024-08-16 08:06] VITALS: BP 118/56; PULSE 84; RESP 20; TEMP 36.3; O2SAT 97
[2024-08-16] MEDS: Enoxaparin 40 MG/0.4 ML Syringe SC (08:12)
[2024-08-16 08:35] VITALS: PULSE 86; RESP 17
--- NOTE | 2024-08-16 09:54 | DCINST_ITS ---
Discharge Instructions Diet Discharge Diet: No restrictions DC O2, CPAP, BIPAP needs Home O2 Discharge instructions: No Dressing / Incision Discharge Activity: No Restrictions Follow Up Care Test Results: Test results from this visit will be discussed in further detail at your follow- up appointment, if applicable. Discharge Plan Admission Admit Date/Time: 08/14/24 18:45 Primary Reason for Your Visit: shortness of breath Attending Provider: Cheng Rose Primary Care Provider: [facility] Discharge Orders/Prescriptions Prescriptions: New prednisone 10 mg tablet See Taper PO DAILY 12 Days Qty: 30 0RF Taper: Prednisone Taper 40 mg WITH BREAKFAST for 3 Days and 0 Hour 30 mg WITH BREAKFAST for 3 Days and 0 Hour 20 mg WITH BREAKFAST for 3 Days and 0 Hour 10 mg WITH BREAKFAST for 3 Days and 0 Hour amoxicillin-pot clavulanate 875-125 mg tablet 1 tab PO BID 3 Days Qty: 6 0RF Continued sildenafil [Viagra] 100 MG tablet 100 mg PO PRN PRN (Reason: SEX) buspirone 10 MG tablet 10 mg PO TID albuterol sulfate [Ventolin HFA] 90 mcg/actuation HFA aerosol inhaler 2 puff inhalation Q4H PRN PRN (Reason: Wheezing) Qty: 8.5 0RF Referrals / Follow Up: [facility] [Primary Care Provider] - Disposition Disposition (needs filled in before D/C Order can be placed): Home, Self Care
--- NOTE | 2024-08-16 09:57 | PCM.DC.SUM ---
Providers Date of Admission: 08/14/24 Date of Discharge: 08/16/24 Primary Care Physician: [facility] Reason For Visit: COPD EXACERBATION Diagnosis Discharge Diagnosis (1) Hypoxemia: Status: Acute Code(s): R09.02 - Hypoxemia (2) COPD with acute exacerbation: Status: Chronic Code(s): J44.1 - Chronic obstructive pulmonary disease with (acute) exacerbation Medications at Discharge Home Medications buspirone 10 mg tablet 10 mg PO TID 07/27/16 sildenafil 100 mg tablet (Viagra) 100 mg PO PRN PRN SEX 07/27/16 albuterol sulfate 90 mcg/actuation aerosol inhaler (Ventolin HFA) 2 puff inhalation Q4H PRN PRN Wheezing #8.5 grams 04/20/24 amoxicillin 875 mg-potassium clavulanate 125 mg tablet 1 tab PO BID 3 days #6 tabs 08/16/24 prednisone 10 mg tablet See Taper PO DAILY 12 days #30 tabs 08/16/24 Hospital Course Operations None Procedures EKG and - (Chest x-ray) Summary of Care Provided Minutes Spent on Discharge: 35 Hospital Course: Patient is a 74-year-old male who presented to [facility] ED on 08/14/24 for worsening shortness of breath. Hospital course as noted below. Patient discharged home in stable condition on 08/16. 1. Acute hypoxia in setting of COPD exacerbation with concern for right lower lobe pneumonia ? Initially presented to ED on 08/10 with worsening shortness of breath and symptoms consistent with pneumonia. Treated for COPD exacerbation with IV antibiotics, IV steroids and scheduled DuoNebs with some improvement. Patient left AMA on morning of 08/14 as he needed to attend some sort of meeting. He then returned to the ED on evening of 08/14. Did have continued symptoms of shortness of breath and wheezing on return. Chest x-ray showed increased lucency in lung bases with right basilar consolidative opacity concerning for pneumonia. Infectious workup negative. Treated with IV antibiotics, IV steroids and scheduled DuoNebs while here with improvement. Completed oxygen testing on day of discharge and did not require any oxygen at rest or with exertion. Discharged home on short prednisone taper and p.o. antibiotics to complete 7-day course total. 2. Chronic alcohol use disorder ? Was on CIWA protocol while inpatient with low scores and did not require any medication for management. 3. Anxiety/depression ? Continue home BuSpar. 4. Moderate protein calorie malnutrition ? Nutrition followed. Does meet criteria for chronic moderate protein calorie malnutrition. Added Ensure plus high-protein with meals while inpatient and recommend high-protein intake on discharge. 5. Tobacco abuse ? Smokes 1 pack/week. Denied need for nicotine replacement therapy while inpatient. Discussed cessation on discharge. Total clinical time spent by myself addressing the patient's medical issues, reviewing all the data, and collaborating with patient's care team: 35 minutes. Physical Exam Const alert, oriented x3 and no apparent distress Constitutional Narrative: Elderly male, thin with pulmonary cachexia, good energy level, sitting back comfortably in bedside chair, conversing normally, in no acute distress. General Appearance: cooperative and comfortable HEENT normocephalic, head/scalp atraumatic, hearing grossly normal bilaterally, nasal mucous membranes and turbinates normal and moist oral mucous membranes Eyes PERRL, EOMs intact bilaterally and conjunctivae normal Neck full ROM Chest inspection of chest normal Resp normal respiratory effort and no use of accessory muscles Resp Narrative: Breathing comfortably on room air at rest. Good air movement throughout with no wheezing or crackles noted, improved. Cardio regular rate, regular rhythm, no murmurs and peripheral pulses 2+ throughout GI normal to inspection, nondistended, normoactive bowel sounds, soft to palpation, non-tender and non-distended Back/Spine normal ROM Extremity normal to inspection, full ROM and no pedal edema Skin no rashes or lesions noted Psych mental status grossly normal Weight / BMI Weight Weight: 52 kg Body Mass Index (BMI) 19.1 ABG / Lab / Microbiology Data 08/16/24 05:27 08/16/24 05:27 Laboratory: Laboratory Results - last 24 hr 08/16/24 05:27: WBC 29.4 H, RBC 3.86 L, Hgb 12.4 L, Hct 39.0 L, MCV 101.0 H, MCH 32.1 H, MCHC 31.8 L, RDW Std Deviation 48.5 H, RDW Coeff of Mahad 13.0, Plt Count 559 H, MPV 9.5, Sodium 140, Potassium 4.7, Chloride 102, Carbon Dioxide 26.5, Anion Gap 11, BUN 30 H, Creatinine 0.68 L, Estim Creat Clear Calc 60.49, Est GFR (MDRD) Non-Af 98, BUN/Creatinine Ratio 43.4 H, Glucose 126 H, Calcium 8.9 D/C Instructions Discharge Diet: No restrictions DC O2, CPAP, BIPAP Needs Home O2 Discharge instructions: No Meaningful Use Info Meaningful Use Meaningful Use Diagnoses (Choose all that apply): None applicable Ischemic Stroke Statin Dosing Therapy Reference: STATIN DOSE THERAPY REFERENCE: * Patients > 75 years receive moderate or high dose statin therapy. * Patients 75 years or YOUNGER should receive HIGH intensity statin dose unless contraindicated. You will be required to document reason for non-treatment if statin daily dose does not meet guidelines. HIGH DOSE STATIN THERAPY DAILY Atorvastatin > than or = to 40 mg Rosuvastatin > than or = to 20 mg Amlodipine + Atorvastatin > than or = to 2.5/40 mg Ezetimibe + Simvastatin 10/80 mg Simvastatin 80mg Discharge Plan Admission Admit Date/Time: 08/14/24 18:45 Primary Reason for Your Visit: shortness of breath Attending Provider: Cheng Rose Primary Care Provider: [facility] Discharge Orders/Prescriptions Prescriptions: New prednisone 10 mg tablet See Taper PO DAILY 12 Days Qty: 30 0RF Taper: Prednisone Taper 40 mg WITH BREAKFAST for 3 Days and 0 Hour 30 mg WITH BREAKFAST for 3 Days and 0 Hour 20 mg WITH BREAKFAST for 3 Days and 0 Hour 10 mg WITH BREAKFAST for 3 Days and 0 Hour amoxicillin-pot clavulanate 875-125 mg tablet 1 tab PO BID 3 Days Qty: 6 0RF Continued sildenafil [Viagra] 100 MG tablet 100 mg PO PRN PRN (Reason: SEX) buspirone 10 MG tablet 10 mg PO TID albuterol sulfate [Ventolin HFA] 90 mcg/actuation HFA aerosol inhaler 2 puff inhalation Q4H PRN PRN (Reason: Wheezing) Qty: 8.5 0RF Referrals / Follow Up: [facility] [Primary Care Provider] - Disposition Disposition (needs filled in before D/C Order can be placed): Home, Self Care Charges/Coding Visit Charges Inpatient E&M: 34948 Disch Hosp >30min
--- NOTE | 2024-08-16 10:08 | CASEMGMT ---
Pt does not qualify for home oxygen.
--- NOTE | 2024-08-16 10:13 | CASEMGMT ---
Social Work SW met with pt and assessed for home safety. Pt denies any concerns with physical or verbal abuse. Pt denies anyone financially taking advantage of him. Pt states he has been in contact with [employer] to assist with rent payment. Pt denies any concerns with dc home. GIORGIO Santos
--- NOTE | 2024-08-16 12:17 | CASEMGMT ---
Received tc from Rubens at [facility] who states pt left without obtaining his medications as he did not have funds to cover the $26. Completed christiano care intervention and tubed to [facility]. She states she will call pt to make aware as she has been in touch with him. They are having pt meds delivered to his home.
== END 2024-08-16 10:17 | disposition home or self-care (01) | DRG 194 ==
LOC: ED 19:02 → MS3 19:17
PROVIDERS: Admitting Provider Hospitalist; Emergency Provider Emergency Medicine; Visit Provider Hospitalist
DX: J18.9 Pneumonia, unspecified organism (principal); J44.0 Chronic obstructive pulmonary disease with (acute) lower respiratory infection; E44.0 Moderate protein-calorie malnutrition; J44.1 Chronic obstructive pulmonary disease with (acute) exacerbation; Z68.1 Body mass index [BMI] 19.9 or less, adult; Z66 Do not resuscitate; J98.01 Acute bronchospasm; F17.210 Nicotine dependence, cigarettes, uncomplicated; Z53.29 Procedure and treatment not carried out because of patient's decision for other reasons; R09.02 Hypoxemia; Z11.52 Encounter for screening for COVID-19
CPT/HCPCS: 36415; 36600; 71046; 80048; 80053; 82803; 83605; 85025; 85027; 93005; 94640; 94668; 97802; 99285; 99406; A4216